=== PATIENT | male | born 1975 | race Caucasian/White ===

== ENCOUNTER 2017-11-14 14:13 | Inpatient (IN) ==
--- NOTE | 2017-11-14 14:41 | Emergency Department Note ---
Disposition Clinical Impression: Suicidal ideation Disposition: Admitted As Inpatient Condition: Fair Time of Disposition: 14:00 Psych HPI - General Chief Complaint: ED Psychiatric Symptoms Stated Complaint: SI Time Seen by Provider: 11/14/17 14:19 Source: patient, EMS Mode of arrival: ambulatory Limitations: no limitations Nursing Notes Reviewed: Yes Vital Signs Reviewed: Yes - History of Present Illness HPI Narrative: Patient is a 42-year-old male who presents to [facility] ED with a chief complaint of suicidal ideation. States he has been feeling this way since last month. He was recently in a rehabilitation program and they kicked him out. States he has been off his medications including methadone, Seroquel, alprazolam for the last 5 days. If he has been having diarrhea. Denies any nausea, vomiting, fever or chills. States he has not had any chest pain or difficulty breathing. He has had some abdominal cramping. No problems with urination or bowel movements. Past medical history significant for anxiety , depression, bipolar disorder. States he has also been hearing voices telling him to hurt himself. Pt complaint: suicidal ideation Onset (ago): week(s) History of similar episodes: Yes Improves with: none Worsens with: none Context: not taking psychiatric medications Alleged intoxication: No Associated Psychiatric Symptoms: suicidal ideation, auditory hallucinations Associated symptoms: Denies: headache, shortness of breath, nausea, vomiting Treatments prior to arrival: none Self harm or harm to others: admits thoughts of self harm - Related Data Home Medications Medication Instructions Recorded Confirmed Alprazolam [Xanax] 2 mg PO BID 11/13/17 11/13/17 Methadone 90 mg PO DAILY 11/13/17 11/13/17 Previous Rx's Medication Instructions Recorded Alprazolam [Alprazolam Xr] 1 mg PO DAILY 4 Days #4 tab.er.24h 11/13/17 Allergies Allergy/AdvReac Type Severity Reaction Status Date / Time chlorpromazine Allergy Difficulty Verified 11/14/17 13:24 [From Thorazine] Breathing haloperidol [From Haldol] Allergy Difficulty Verified 11/14/17 13:24 Breathing risperidone [From Risperdal] AdvReac Difficulty Verified 11/14/17 13:24 Breathing ziprasidone [From Geodon] AdvReac Difficulty Verified 11/14/17 13:24 Breathing All systems ED: reviewed and negative except as stated. Past Medical History - Past Medical History Attestation: Yes The following information was validated with the patient. Source: patient Medical history: Reports: no medical history Surgical history: Reports: non-contributory Psychiatric history: Reports: anxiety, depression, PTSD, prior suicide attempt, previous psychiatric hospitalization - Social History Smoking Status: Current every day smoker Smokeless Tobacco Status: No Alcohol use: Reports: none Drug use: Reports: none Physical Exam - General Limitations: no limitations General appearance: alert, in no apparent distress - Head Head exam: atraumatic, normocephalic, normal inspection - Eye Eye exam: Present: normal appearance, PERRL, EOMI - ENT ENT exam: normal exam, normal oropharynx, mucous membranes moist - Neck Neck exam: Present: normal inspection, full ROM, trachea midline - Chest Chest inspection: Present: normal inspection, symmetric chest wall rise - Respiratory Respiratory exam: Present: normal lung sounds bilaterally - Cardiovascular Cardiovascular exam: Present: regular rate, normal rhythm, normal heart sounds - Abdominal Exam Abdominal exam: Present: soft, Non-Tender. Absent: tenderness, distention, guarding, rebound, rigidity - Extremities Exam Extremities exam: Present: normal inspection, full ROM. Absent: tenderness, pedal edema - Back Exam Back exam: Present: normal inspection, full ROM. Absent: tenderness - Neurological Exam Neurological exam: Present: alert, oriented X3 - Psychiatric Psychiatric exam: Present: normal affect, normal mood - Skin Skin exam: Present: warm, dry, intact, normal color Course Course Narrative: Pt seen and examined. Patient has been off his medications for the last 5 days. Complaining of suicidal ideation. Also complained of a possible syncopal episode this morning. Get a chest x-ray and EKG as well as medical clearance labwork. Patient's vital signs are unremarkable at this time. He is not tachycardic or hypertensive. I do not feel that he is actively withdrawing from opiates at this time. - Reevaluation(s) Reevaluation #1: Labwork, imaging unremarkable. Patient was medically cleared. Patient was evaluated by psychiatry who has accepted patient to [facility] for evaluation. Time: 14:00 Vital Signs Temperature 97.8 F 11/14/17 14:15 Pulse Rate 94 11/14/17 14:15 Respiratory Rate 16 11/14/17 14:15 Blood Pressure 137/91 11/14/17 14:15 O2 Sat by Pulse Oximetry 97 11/14/17 14:15 Temperature 98.5 F 11/14/17 21:00 Pulse Rate 84 11/14/17 21:00 Respiratory Rate 22 11/14/17 21:00 Blood Pressure 132/96 11/14/17 21:00 O2 Sat by Pulse Oximetry 97 11/14/17 14:53 Oxygen Delivery Oxygen Delivery Room Air Psych - Medical Records Medical records reviewed: Yes I reviewed the patient's medical records. - Lab Data Lab results reviewed: Yes I reviewed the patient's lab results. Result diagrams: 11/14/17 14:54 11/14/17 14:54 Lab Results 11/14/17 11/14/17 11/14/17 Range/Units 14:52 14:52 14:54 WBC 6.6 (4.3-11.1) K/mcL RBC 4.75 (4.19-5.50) M/mcL Hgb 13.7 (12.9-16.9) g/dL Hct 39.7 (37.5-50.1) % MCV 83.6 (83.0-100.0) fL MCH 28.8 (28.0-33.3) pg MCHC 34.5 (31.6-35.5) g/dL RDW 13.6 (11.5-14.5) % Plt Count 158 (140-400) K/mcL MPV 9.7 (9.4-12.4) fL Immature Gran % 0.2 (0-4) % Seg Neutrophils % 57.1 % Lymphocytes % 31.6 % Monocytes % 6.8 % Eosinophils % 3.8 % Basophils % 0.5 % Neutrophils # 3.8 (1.6-8.9) K/mcL Lymphocytes # 2.1 (0.6-4.6) K/mcL Monocytes # 0.5 (0.0-1.3) K/mcL Eosinophils # 0.3 (0.0-0.6) K/mcL Basophils # 0.0 (0.0-0.2) K/mcL Sodium (136-145) mEq/L Potassium (3.5-5.1) mEq/L Chloride (98-107) mEq/L Carbon Dioxide (23-29) mEq/L BUN (6-20) mg/dL Creatinine (0.70-1.30) mg/dL Est GFR ( Amer) (> 60) Est GFR (Non-Af Amer) (> 60) BUN/Creatinine Ratio (6-26) Glucose (70-105) mg/dL Calculated Osmolality (280-300) Calcium (8.6-10.3) mg/dL Urine Color Yellow (Yellow) Urine Clarity Clear (Clear) Urine pH 5.5 (5.0-8.0) pH Units Ur Specific [place] > 1.030 H (1.010-1.025) Urine Protein Negative (Neg-Trace) mg/dL Urine Glucose (UA) Normal (Normal) mg/dL Urine Ketones Negative (Negative) mg/dL Urine Blood Negative (Negative) Urine Nitrite Negative (Negative) Urine Bilirubin Negative (Negative) Urine Urobilinogen Normal (Normal) mg/dL Ur Leukocyte Esterase Negative (Negative) Salicylates (15.0-30.0) mg/dL Urine Opiates Screen Negative (Zlfomd=292) ng/mL Acetaminophen (10-20) mcg/mL Ur Barbiturates Screen Negative (Szqxez=915) ng/mL Ur Phencyclidine Scrn Negative (Cutoff=25) ng/mL Ur Amphetamines Screen Positive H (Zjacwz=4027) ng/mL U Benzodiazepines Scrn Positive H (Fslzpj=107) ng/mL Urine Cocaine Screen Negative (Cutoff= 300) ng/mL U Marijuana (THC) Screen Negative (Cutoff = 50) ng/mL Ethyl Alcohol (Less than 10) mg/dL 11/14/17 Range/Units 14:54 WBC (4.3-11.1) K/mcL RBC (4.19-5.50) M/mcL Hgb (12.9-16.9) g/dL Hct (37.5-50.1) % MCV (83.0-100.0) fL MCH (28.0-33.3) pg MCHC (31.6-35.5) g/dL RDW (11.5-14.5) % Plt Count (140-400) K/mcL MPV (9.4-12.4) fL Immature Gran % (0-4) % Seg Neutrophils % % Lymphocytes % % Monocytes % % Eosinophils % % Basophils % % Neutrophils # (1.6-8.9) K/mcL Lymphocytes # (0.6-4.6) K/mcL Monocytes # (0.0-1.3) K/mcL Eosinophils # (0.0-0.6) K/mcL Basophils # (0.0-0.2) K/mcL Sodium 140 (136-145) mEq/L Potassium 3.5 (3.5-5.1) mEq/L Chloride 106 (98-107) mEq/L Carbon Dioxide 30 H (23-29) mEq/L BUN 13 (6-20) mg/dL Creatinine 0.83 (0.70-1.30) mg/dL Est GFR ( Amer) > 60 (> 60) Est GFR (Non-Af Amer) > 60 (> 60) BUN/Creatinine Ratio 16 (6-26) Glucose 130 H (70-105) mg/dL Calculated Osmolality 292 (280-300) Calcium 9.0 (8.6-10.3) mg/dL Urine Color (Yellow) Urine Clarity (Clear) Urine pH (5.0-8.0) pH Units Ur Specific [place] (1.010-1.025) Urine Protein (Neg-Trace) mg/dL Urine Glucose (UA) (Normal) mg/dL Urine Ketones (Negative) mg/dL Urine Blood (Negative) Urine Nitrite (Negative) Urine Bilirubin (Negative) Urine Urobilinogen (Normal) mg/dL Ur Leukocyte Esterase (Negative) Salicylates < 2.5 L (15.0-30.0) mg/dL Urine Opiates Screen (Xgszkj=273) ng/mL Acetaminophen < 10 L (10-20) mcg/mL Ur Barbiturates Screen (Paluzg=360) ng/mL Ur Phencyclidine Scrn (Cutoff=25) ng/mL Ur Amphetamines Screen (Czbahm=2822) ng/mL U Benzodiazepines Scrn (Runwwo=146) ng/mL Urine Cocaine Screen (Cutoff= 300) ng/mL U Marijuana (THC) Screen (Cutoff = 50) ng/mL Ethyl Alcohol < 10 (Less than 10) mg/dL - Radiology Data Radiology results reviewed: Yes I reviewed the patient's radiology results. - EKG Data EKG attestation: Yes I reviewed and interpreted this EKG. EKG results narrative: EKG done at 1456 shows normal sinus rhythm with a rate of [address] elevation or depression noted. Normal axis. No signs of prolonged intervals or shortened intervals, Brugada or ARVD. No prior EKG for comparison. Psychiatric Medical Clearance - Medical Clearance Checklist Does the patient have a NEW psychiatric condition?: No Any abnormalities indicating possible medical illness?: No Any history of medical issues?: No Medical History: No Social History Section defined Any abnormal vital signs prior to transfer?: No Current Vitals: Last Vital Signs Temp 98.5 F 11/14/17 21:00 Pulse 84 11/14/17 21:00 Resp 22 11/14/17 21:00 BP 132/96 11/14/17 21:00 Pulse Ox 97 11/14/17 14:53 Is the patient intoxicated or cognitively impaired?: No Psychiatric Lab Panel: Drug Levels and Toxicity 11/14/17 11/14/17 14:52 14:54 Urine Opiates Screen Negative Acetaminophen < 10 L Ur Barbiturates Screen Negative Ur Phencyclidine Scrn Negative Ur Amphetamines Screen Positive H U Benzodiazepines Scrn Positive H Urine Cocaine Screen Negative U Marijuana (THC) Screen Negative Ethyl Alcohol < 10 Any abnormalities on the physical exam?: No Any abnormal labs?: No Abnormal Labs: Abnormal lab results Carbon Dioxide 30 mEq/L (23-29) H 11/14/17 14:54 Glucose 130 mg/dL (70-105) H 11/14/17 14:54 Ur Specific [place] > 1.030 (1.010-1.025) H 11/14/17 14:52 Salicylates < 2.5 mg/dL (15.0-30.0) L 11/14/17 14:54 Acetaminophen < 10 mcg/mL (10-20) L 11/14/17 14:54 Ur Amphetamines Screen Positive ng/mL (Feodxq=8173) H 11/14/17 14:52 U Benzodiazepines Scrn Positive ng/mL (Hacbug=815) H 11/14/17 14:52 Does the patient require durable medical equiptment?: No Is the patient ambulatory?: Yes Is the patient a fall risk?: No Has the patient been medically cleared?: Yes Any acute medical condition require Tx prior to transfer?: No Statement of Medical Clearance: I have evaluated the patient, reviewed diagnostic information, and certify that the patient's medical condition is sufficiently stable that transfer to the psychiatric unit does not pose a significant risk of deterioration.
[2017-11-14 15:15] LABS: Basophils % 0.5 %; Eosinophils # 0.3 K/mcL (0.0-0.6); Eosinophils % 3.8 %; Hematocrit 39.7 % (37.5-50.1); Hemoglobin 13.7 g/dL (12.9-16.9); Immature Granulocytes % 0.2 % (0-4); Lymphocytes # 2.1 K/mcL (0.6-4.6); Lymphocytes % 31.6 %; Mean Corpuscular HGB Conc 34.5 g/dL (31.6-35.5); Mean Corpuscular Hemoglobin 28.8 pg (28.0-33.3); Mean Corpuscular Volume 83.6 fL (83.0-100.0); Mean Platelet Volume 9.7 fL (9.4-12.4); Monocytes # 0.5 K/mcL (0.0-1.3); Monocytes % 6.8 %; Neutrophils # 3.8 K/mcL (1.6-8.9); Platelet Count 158 K/mcL (140-400); Red Blood Count 4.75 M/mcL (4.19-5.50); Red Cell Distribution Width 13.6 % (11.5-14.5); Segmented Neutrophils % 57.1 %
[2017-11-14 15:26] LABS: Acetaminophen < 10 mcg/mL (10-20); BUN/Creatinine Ratio 16 (6-26); Blood Urea Nitrogen 13 mg/dL (6-20); Carbon Dioxide 30 mEq/L (23-29); Chloride 106 mEq/L (98-107); Ethanol < 10 mg/dL (Less than 10); Glucose 130 mg/dL (70-105); Osmolality,Calculated 292 (280-300); Potassium 3.5 mEq/L (3.5-5.1); Salicylate < 2.5 mg/dL (15.0-30.0); Sodium 140 mEq/L (136-145); eGFR For African Americans > 60 (> 60); eGFR For Non-African Americans > 60 (> 60)
--- NOTE | 2017-11-14 16:04 | Emergency Department Note ---
Disposition Clinical Impression: Suicidal ideation Disposition: Admitted As Inpatient Referrals: NONE,PCP [Primary Care Provider] - Ishmael Hager [Family Provider] - Forms: ED Satisfaction Letter Time of Disposition: 20:21 General Adult HPI - General Chief complaint: ED Psychiatric Symptoms Stated complaint: SI Time Seen by Provider: 11/14/17 14:19 Source: patient, EMS Mode of arrival: ambulatory Limitations: no limitations - History of Present Illness Pain Scale: 0 - Related Data Home Medications Medication Instructions Recorded Confirmed Alprazolam [Xanax] 2 mg PO BID 11/13/17 11/13/17 Methadone 90 mg PO DAILY 11/13/17 11/13/17 Previous Rx's Medication Instructions Recorded Alprazolam [Alprazolam Xr] 1 mg PO DAILY 4 Days #4 tab.er.24h 11/13/17 Allergies Allergy/AdvReac Type Severity Reaction Status Date / Time chlorpromazine Allergy Difficulty Verified 11/14/17 13:24 [From Thorazine] Breathing haloperidol [From Haldol] Allergy Difficulty Verified 11/14/17 13:24 Breathing risperidone [From Risperdal] AdvReac Difficulty Verified 11/14/17 13:24 Breathing ziprasidone [From Geodon] AdvReac Difficulty Verified 11/14/17 13:24 Breathing Past Medical History - Past Medical History Medical history: Reports: no medical history Surgical history: Reports: non-contributory Psychiatric history: Reports: anxiety, depression, PTSD, prior suicide attempt, previous psychiatric hospitalization - Social History Smoking Status: Current every day smoker Smokeless Tobacco Status: No Alcohol use: Reports: none Drug use: Reports: none Physical Exam - General Limitations: no limitations General appearance: alert, in no apparent distress Course Vital Signs Temperature 97.8 F 11/14/17 14:15 Pulse Rate 94 11/14/17 14:15 Respiratory Rate 16 11/14/17 14:15 Blood Pressure 137/91 11/14/17 14:15 O2 Sat by Pulse Oximetry 97 11/14/17 14:15 Temperature 97.8 F 11/14/17 14:15 Pulse Rate 94 11/14/17 14:53 Respiratory Rate 20 11/14/17 14:53 Blood Pressure 137/91 11/14/17 14:53 O2 Sat by Pulse Oximetry 97 11/14/17 14:53 Oxygen Delivery Oxygen Delivery Room Air Medical Decision Making - Lab Data Result diagrams: 11/14/17 14:54 11/14/17 14:54 Lab Results 11/14/17 11/14/17 11/14/17 Range/Units 14:52 14:52 14:54 WBC 6.6 (4.3-11.1) K/mcL RBC 4.75 (4.19-5.50) M/mcL Hgb 13.7 (12.9-16.9) g/dL Hct 39.7 (37.5-50.1) % MCV 83.6 (83.0-100.0) fL MCH 28.8 (28.0-33.3) pg MCHC 34.5 (31.6-35.5) g/dL RDW 13.6 (11.5-14.5) % Plt Count 158 (140-400) K/mcL MPV 9.7 (9.4-12.4) fL Immature Gran % 0.2 (0-4) % Seg Neutrophils % 57.1 % Lymphocytes % 31.6 % Monocytes % 6.8 % Eosinophils % 3.8 % Basophils % 0.5 % Neutrophils # 3.8 (1.6-8.9) K/mcL Lymphocytes # 2.1 (0.6-4.6) K/mcL Monocytes # 0.5 (0.0-1.3) K/mcL Eosinophils # 0.3 (0.0-0.6) K/mcL Basophils # 0.0 (0.0-0.2) K/mcL Sodium (136-145) mEq/L Potassium (3.5-5.1) mEq/L Chloride (98-107) mEq/L Carbon Dioxide (23-29) mEq/L BUN (6-20) mg/dL Creatinine (0.70-1.30) mg/dL Est GFR ( Amer) (> 60) Est GFR (Non-Af Amer) (> 60) BUN/Creatinine Ratio (6-26) Glucose (70-105) mg/dL Calculated Osmolality (280-300) Calcium (8.6-10.3) mg/dL Urine Color Yellow (Yellow) Urine Clarity Clear (Clear) Urine pH 5.5 (5.0-8.0) pH Units Ur Specific [place] > 1.030 H (1.010-1.025) Urine Protein Negative (Neg-Trace) mg/dL Urine Glucose (UA) Normal (Normal) mg/dL Urine Ketones Negative (Negative) mg/dL Urine Blood Negative (Negative) Urine Nitrite Negative (Negative) Urine Bilirubin Negative (Negative) Urine Urobilinogen Normal (Normal) mg/dL Ur Leukocyte Esterase Negative (Negative) Salicylates (15.0-30.0) mg/dL Urine Opiates Screen Negative (Soqoej=717) ng/mL Acetaminophen (10-20) mcg/mL Ur Barbiturates Screen Negative (Uvwajv=797) ng/mL Ur Phencyclidine Scrn Negative (Cutoff=25) ng/mL Ur Amphetamines Screen Positive H (Mxragx=2253) ng/mL U Benzodiazepines Scrn Positive H (Qaqrbl=868) ng/mL Urine Cocaine Screen Negative (Cutoff= 300) ng/mL U Marijuana (THC) Screen Negative (Cutoff = 50) ng/mL Ethyl Alcohol (Less than 10) mg/dL 11/14/17 Range/Units 14:54 WBC (4.3-11.1) K/mcL RBC (4.19-5.50) M/mcL Hgb (12.9-16.9) g/dL Hct (37.5-50.1) % MCV (83.0-100.0) fL MCH (28.0-33.3) pg MCHC (31.6-35.5) g/dL RDW (11.5-14.5) % Plt Count (140-400) K/mcL MPV (9.4-12.4) fL Immature Gran % (0-4) % Seg Neutrophils % % Lymphocytes % % Monocytes % % Eosinophils % % Basophils % % Neutrophils # (1.6-8.9) K/mcL Lymphocytes # (0.6-4.6) K/mcL Monocytes # (0.0-1.3) K/mcL Eosinophils # (0.0-0.6) K/mcL Basophils # (0.0-0.2) K/mcL Sodium 140 (136-145) mEq/L Potassium 3.5 (3.5-5.1) mEq/L Chloride 106 (98-107) mEq/L Carbon Dioxide 30 H (23-29) mEq/L BUN 13 (6-20) mg/dL Creatinine 0.83 (0.70-1.30) mg/dL Est GFR ( Amer) > 60 (> 60) Est GFR (Non-Af Amer) > 60 (> 60) BUN/Creatinine Ratio 16 (6-26) Glucose 130 H (70-105) mg/dL Calculated Osmolality 292 (280-300) Calcium 9.0 (8.6-10.3) mg/dL Urine Color (Yellow) Urine Clarity (Clear) Urine pH (5.0-8.0) pH Units Ur Specific [place] (1.010-1.025) Urine Protein (Neg-Trace) mg/dL Urine Glucose (UA) (Normal) mg/dL Urine Ketones (Negative) mg/dL Urine Blood (Negative) Urine Nitrite (Negative) Urine Bilirubin (Negative) Urine Urobilinogen (Normal) mg/dL Ur Leukocyte Esterase (Negative) Salicylates < 2.5 L (15.0-30.0) mg/dL Urine Opiates Screen (Jyxhhq=572) ng/mL Acetaminophen < 10 L (10-20) mcg/mL Ur Barbiturates Screen (Qqzmls=996) ng/mL Ur Phencyclidine Scrn (Cutoff=25) ng/mL Ur Amphetamines Screen (Wrdjux=6379) ng/mL U Benzodiazepines Scrn (Kayate=459) ng/mL Urine Cocaine Screen (Cutoff= 300) ng/mL U Marijuana (THC) Screen (Cutoff = 50) ng/mL Ethyl Alcohol < 10 (Less than 10) mg/dL Attestation Statement - Attestation Attestation: I examined this patient and my medical decision-making was reviewed with the Resident Physician. I agree with the documented findings, disposition and treatment plan as described except to the extent set forth below. Patient to the ED with suicidal thoughts. Patient went to urgent care threatening to jump off a bridge because he is out of his benzo and methadone. Patient has had multiple visits for the same. Patient awake and alert in no distress on my evaluation. Expressing suicidal thoughts. Plan. Medical clearance and evaluation by [facility]. Patient medically cleared at this time and awaiting evaluation Evaluated by [facility] who feels he is appropriate for admission. Requesting haloperidol and lorazepam
[2017-11-14 16:37] LABS: Bilirubin,Urine Negative (Negative); Blood,Urine Negative (Negative); Clarity,Urine Clear (Clear); Color,Urine Yellow (Yellow); Glucose,Urine (UA) Normal (Normal); Ketones,Urine Negative (Negative); Leukocyte Esterase,Urine Negative (Negative); Nitrite,Urine Negative (Negative); PH,Urine 5.5 pH Units (5.0-8.0); Protein,Urine Negative (Neg-Trace); Specific Gravity,Urine > 1.030 (1.010-1.025); Urobilinogen,Urine Normal (Normal)
[2017-11-14 16:46] LABS: Amphetamine Screen,Urine Positive ng/mL (Cutoff=1000); Barbiturate Screen,Urine Negative ng/mL (Cutoff=200); Benzodiazepines Screen,Urine Positive ng/mL (Cutoff=200); Cannabinoid Screen,Urine Negative ng/mL (Cutoff = 50); Cocaine Screen,Urine Negative ng/mL (Cutoff= 300); Opiate Screen,Urine Negative ng/mL (Cutoff=300); Phencyclidine Screen,Urine Negative ng/mL (Cutoff=25)
[2017-11-14] MEDS ORDERED: *HR* LORazepam 2 MG/ML VIAL IM ONE (20:19)
[2017-11-14] MEDS ORDERED: Haloperidol Lactate 5 MG/ML VIAL IM ONE (20:19)
[2017-11-14] MEDS ORDERED: Mag Hydrox/Al Hydrox/Simeth 30 ML UDC PO PRN (20:43)
[2017-11-14] MEDS ORDERED: MOM Conc 10 ML UD.LIQ PO PRN (20:43)
[2017-11-14] MEDS ORDERED: Acetaminophen 325 MG TABLET PO PRN (20:43)
[2017-11-14] MEDS ORDERED: traZODone 50 MG TABLET PO PRN (20:43)
[2017-11-14] MEDS ORDERED: *HR* LORazepam 1 MG TABLET PO PRN (20:43)
[2017-11-14] MEDS ORDERED: *HR* LORazepam 2 MG/ML VIAL IM PRN (20:43)
[2017-11-14] MEDS ORDERED: hydrOXYzine pamoate 25 MG CAPSULE PO PRN (20:43)
[2017-11-14] MEDS ORDERED: Ondansetron ODT 4 MG TAB.RAPDIS SL PRN (20:46)
[2017-11-14] MEDS ORDERED: *HR* Promethazine 25 MG/ML VIAL IM ONE (21:17)
--- NOTE | 2017-11-15 16:03 | Psychiatry History & Physical ---
Date of Encounter: 11/15/17 Time of Encounter: 15:30 History of Present Illness Patient Stated Chief Complaint: I need my methadone Medicare Admission Attestation: For traditional Medicare patients the provided hospital inpatient services are reasonable and necessary and in the case of services not specified as inpatient -only under 42 CFR 419.22 (n), that they are appropriately provided as inpatient services in accordance 42 CFR 412.3. For Critical Access Hospital the patient may reasonably be expected to be discharged or transferred to a hospital within 96 hours after admission to the Critical Access Hospital. Admitted From: Emergency Dept Plans for Post Hospital Care: Home History of Present Illness: Patient to the ED with suicidal thoughts. Patient went to urgent care threatening to jump off a bridge because he is out of his benzo and methadone. Patient has had multiple visits for the same. Patient awake and alert in no distress on my evaluation. Expressing suicidal thoughts. Plan. Medical clearance and evaluation by 1A. Patient medically cleared at this time and awaiting evaluation Evaluated by 1A who feels he is appropriate for admission. Requesting haloperidol and lorazepam Pt is a 42 yo ,, male, marriedx1, with 2 children, who presents for substance induced mood disorder, opioid use D/O and benzodiazepine use D/O. Pt noted "I just need my meds, I said all that stuff to get my meds and you wont give them to me." Pt was offer a multiple non-narcotic medications and he refused all demanding methadone, opioids, or benzodiazepines.....pt noted he would settle for tramadol. Pt refused to participate in treatment team or take psychiatric medications due to not being prescirbed what he wanted. Pt noted "I feel safe and comfortable on the unit." Pt denied any side effects to current medications. Pt requested D/C for tomorrow. Pt noted that he is doing alright today. Pt noted he slept really good last night they gave me lorazepam. Pt noted his appetite is good. Pt rated his depression a 0, on a scale of zero to ten with ten being the worst and zero being none. Pt rate his anxiety a 0, on the same scale. Pt denied any auditory or visual hallucinations. Pt denied any current thoughts to harm himself or anyone else. Pt refused all antidepressants, anti-anzylitics and pain medications unless it was a narcotic. Pt denied HEP C, HIV, TBIs. Pt noted a hx of seizures (years ago). No TD noted, AIMS=0 Assessment/Plan 1.Interval hx 2.Continue current medications 3.Review current labs 4.Pt had an opportunity to ask questions and discuss current treatment plan. 5.Supportive therapy was provided 6.Pt encouraged to consider group or individual therapy 7.Pt was in agreement with treatment plan. 8.Pt was educated on the risks benefits and side effects of current medications. Past Med Surg Social Fam HX - Past Medical History Medical history: no medical history - Past Psychiatric History Psychiatric history: Reports: depression, previous psychiatric hospitalization, other (polysubstance use D/O) Family psychiatric history: Yes Family History of Suicide: Unknown - Past Surgical History Surgical History: non-contributory - Social History Smoking Status: Former smoker Smokeless Tobacco Status: No Alcohol use: none Drug use: none Medications & Allergies ALPRAZolam [Xanax 1 MG Tablet] 1 mg PO BID 11/15/17 [History] 3 Allergy/AdvReac Type Severity Reaction Status Date / Time chlorpromazine Allergy Difficulty Verified 11/15/17 10:05 [From Thorazine] Breathing haloperidol [From Haldol] Allergy Difficulty Verified 11/15/17 10:05 Breathing risperidone [From Risperdal] AdvReac Difficulty Verified 11/15/17 10:05 Breathing ziprasidone [From Geodon] AdvReac Difficulty Verified 11/15/17 10:05 Breathing Review of Systems Constitutional: Denies: fever, chills, weakness, weight change Eyes: Denies: eye pain, vision change Ears, Nose, Throat: Denies: ear pain, throat pain, dental pain, hearing loss, congestion Cardiovascular: Denies: chest pain, palpitations, dyspnea on exertion Respiratory: Denies: cough, dyspnea, wheezes Gastrointestinal: Denies: abdominal pain, nausea, vomiting, diarrhea, constipation Genitourinary male: Denies: urgency, dysuria, frequency, genital lesions Musculoskeletal: Denies: joint swelling, joint pain Integumentary: Denies: rash, lesions, pruritus Neurological: Denies: headache, weakness, numbness, memory loss Psychiatric: Reports: anxiety, other (polysubstance use D/O) Endocrine: Denies: fatigue, heat or cold intolerance Hematologic/Lymphatic: Denies: easy bruising, lymphadenopathy Allergic/Immunologic: Denies: urticaria, itchy eyes Exam - HEENT Head exam IM: Present: atraumatic Eye exam IM: Present: EOMI, normal appearance, PERRL ENT exam IM: Present: normal exam - Neurological Neurological exam: Present: CN II-XII intact - Respiratory Respiratory exam IM: Present: CTAB - GI/Abdominal GI/Abdominal exam IM: Present: normal bowel sounds, soft. Absent: tenderness - Extremities Extremities exam IM: Present: full ROM - Skin Skin exam IM: Present: dry, warm - Constitutional Vitals: Temp Pulse Resp BP Pulse Ox 97.6 F 101 20 139/98 97 11/15/17 09:00 11/15/17 09:00 11/15/17 09:00 11/15/17 09:00 11/14/17 14:53 General appearance: age & developmentally appropriate, well-groomed, well- nourished - Musculoskeletal Gait: normal Station: relaxed Strength & Tone: normal for patient - Psychiatric Patient Orientation: Yes Person, Yes Time, Yes Place Level of alertness: Alert Behavior: calm, cooperative, other (secondary gain) Psychomotor activity: Normal Eye Contact: Maintains Eye Contact Mood Description: Euthymic/stable Affect description: congruent with mood Speech Volume: Normal Speech pattern: normal rate, normal rhythm, normal tone, fluent Language & Vocabulary: consistent with education Thought Process: Intact, Linear (secondary gain noted), Goal Oriented Thought Content: Yes Intact, No Suicidal ideation, No Homicidal ideation, No Overt delusions Perceptual Disturbances: No Auditory hallucinations, No Visual hallucinations Attention Span Ability: Capable of Focused Attention Memory Description: Grossly Intact Patient Reliability: Questionable Historian Fund of knowledge: Yes abstraction ability, Yes average, Yes aware of current events Intelligence Estimate: Average Judgment: Limited Insight: Partial Results - Labs Labs: Laboratory Last Values WBC 6.6 K/mcL (4.3-11.1) 11/14/17 14:54 RBC 4.75 M/mcL (4.19-5.50) 11/14/17 14:54 Hgb 13.7 g/dL (12.9-16.9) 11/14/17 14:54 Hct 39.7 % (37.5-50.1) 11/14/17 14:54 MCV 83.6 fL (83.0-100.0) 11/14/17 14:54 MCH 28.8 pg (28.0-33.3) 11/14/17 14:54 MCHC 34.5 g/dL (31.6-35.5) 11/14/17 14:54 RDW 13.6 % (11.5-14.5) 11/14/17 14:54 Plt Count 158 K/mcL (140-400) 11/14/17 14:54 MPV 9.7 fL (9.4-12.4) 11/14/17 14:54 Immature Gran % 0.2 % (0-4) 11/14/17 14:54 Seg Neutrophils % 57.1 % 11/14/17 14:54 Lymphocytes % 31.6 % 11/14/17 14:54 Monocytes % 6.8 % 11/14/17 14:54 Eosinophils % 3.8 % 11/14/17 14:54 Basophils % 0.5 % 11/14/17 14:54 Neutrophils # 3.8 K/mcL (1.6-8.9) 11/14/17 14:54 Lymphocytes # 2.1 K/mcL (0.6-4.6) 11/14/17 14:54 Monocytes # 0.5 K/mcL (0.0-1.3) 11/14/17 14:54 Eosinophils # 0.3 K/mcL (0.0-0.6) 11/14/17 14:54 Basophils # 0.0 K/mcL (0.0-0.2) 11/14/17 14:54 Sodium 140 mEq/L (136-145) 11/14/17 14:54 Potassium 3.5 mEq/L (3.5-5.1) 11/14/17 14:54 Chloride 106 mEq/L (98-107) 11/14/17 14:54 Carbon Dioxide 30 mEq/L (23-29) H 11/14/17 14:54 BUN 13 mg/dL (6-20) 11/14/17 14:54 Creatinine 0.83 mg/dL (0.70-1.30) 11/14/17 14:54 Est GFR ( Amer) > 60 (> 60) 11/14/17 14:54 Est GFR (Non-Af Amer) > 60 (> 60) 11/14/17 14:54 BUN/Creatinine Ratio 16 (6-26) 11/14/17 14:54 Glucose 130 mg/dL (70-105) H 11/14/17 14:54 Calculated Osmolality 292 (280-300) 11/14/17 14:54 Calcium 9.0 mg/dL (8.6-10.3) 11/14/17 14:54 Urine Color Yellow (Yellow) 11/14/17 14:52 Urine Clarity Clear (Clear) 11/14/17 14:52 Urine pH 5.5 pH Units (5.0-8.0) 11/14/17 14:52 Ur Specific [place] > 1.030 (1.010-1.025) H 11/14/17 14:52 Urine Protein Negative mg/dL (Neg-Trace) 11/14/17 14:52 Urine Glucose (UA) Normal mg/dL (Normal) 11/14/17 14:52 Urine Ketones Negative mg/dL (Negative) 11/14/17 14:52 Urine Blood Negative (Negative) 11/14/17 14:52 Urine Nitrite Negative (Negative) 11/14/17 14:52 Urine Bilirubin Negative (Negative) 11/14/17 14:52 Urine Urobilinogen Normal mg/dL (Normal) 11/14/17 14:52 Ur Leukocyte Esterase Negative (Negative) 11/14/17 14:52 Salicylates < 2.5 mg/dL (15.0-30.0) L 11/14/17 14:54 Urine Opiates Screen Negative ng/mL (Siquzm=854) 11/14/17 14:52 Acetaminophen < 10 mcg/mL (10-20) L 11/14/17 14:54 Ur Barbiturates Screen Negative ng/mL (Uollwa=538) 11/14/17 14:52 Ur Phencyclidine Scrn Negative ng/mL (Cutoff=25) 11/14/17 14:52 Ur Amphetamines Screen Positive ng/mL (Nknipp=4477) H 11/14/17 14:52 U Benzodiazepines Scrn Positive ng/mL (Yhlojh=286) H 11/14/17 14:52 Urine Cocaine Screen Negative ng/mL (Cutoff= 300) 11/14/17 14:52 U Marijuana (THC) Screen Negative ng/mL (Cutoff = 50) 11/14/17 14:52 Ethyl Alcohol < 10 mg/dL (Less than 10) 11/14/17 14:54 Assessment and Plan (1) Substance induced mood disorder Current visit: Yes Status: Acute Plan: Admit inpatient for safety and stabilization, Close observation, Suicide Precautions per unit protocol, Encourage participation in unit milieu, Group Therapy, Monitor sleep, Monitor appetite Risks, benefits, side effects, alternatives discussed w/pt: Yes Patient agreeable to treatment: Yes Plans for Post Hospital Care: Home (2) Opioid use disorder Current visit: Yes Status: Acute Plan: Admit inpatient for safety and stabilization, Close observation, Suicide Precautions per unit protocol, Encourage participation in unit milieu, Group Therapy, Monitor sleep, Monitor appetite Risks, benefits, side effects, alternatives discussed w/pt: Yes Patient agreeable to treatment: Yes Plans for Post Hospital Care: Home (3) Moderate benzodiazepine use disorder Current visit: Yes Status: Acute Plan: Admit inpatient for safety and stabilization, Close observation, Suicide Precautions per unit protocol, Encourage participation in unit milieu, Group Therapy, Monitor sleep, Monitor appetite Risks, benefits, side effects, alternatives discussed w/pt: Yes Patient agreeable to treatment: Yes Plans for Post Hospital Care: Home (4) Acute anxiety Current visit: No Status: Acute Plan: Admit inpatient for safety and stabilization, Close observation, Suicide Precautions per unit protocol, Encourage participation in unit milieu, Group Therapy, Monitor sleep, Monitor appetite Risks, benefits, side effects, alternatives discussed w/pt: Yes Patient agreeable to treatment: Yes Plans for Post Hospital Care: Home (5) Malingerer Current visit: No Status: Acute Plan: Admit inpatient for safety and stabilization, Close observation, Suicide Precautions per unit protocol, Encourage participation in unit milieu, Group Therapy, Monitor sleep, Monitor appetite Risks, benefits, side effects, alternatives discussed w/pt: Yes Patient agreeable to treatment: Yes Plans for Post Hospital Care: Home
--- NOTE | 2017-11-15 17:53 | Electrocardiograph Report ---
[place] [id number] Test Date: 2017-11-14 Pat Name: Clarke Centervillecortney Department: 103 Room: 1A42 Gender: M Casing Tier: : 1975 Requested By: Annette Piña Order Number: [id number] Reading MD: Clarke Herrera Measurements Intervals [place] Rate: 80 P: 52 MI: 160 QRS: 38 QRSD: 92 T: 50 QT: 361 QTc: 397 Interpretive Statements SINUS RHYTHM POSSIBLE LEFT ATRIAL ENLARGEMENT Electronically Signed On 11-15-2017 17:51:20 EDT by Clarke Herrera
--- NOTE | 2017-11-16 08:37 | Discharge Summary ---
Date of Encounter: 11/16/17 Time of Encounter: 08:30 Diagnosis - Discharge Diagnosis (1) Substance induced mood disorder Status: Acute (2) Opioid use disorder Status: Acute (3) Moderate benzodiazepine use disorder Status: Acute (4) Acute anxiety Status: Acute (5) Malingerer Status: Acute Medications - Discharge Medications Prescriptions: hydrOXYzine pamoate [HydrOXYzine Pamoate] 25 mg PO TID PRN #120 capsule PRN Reason: Anxiety hydrOXYzine pamoate [HydrOXYzine Pamoate] 25 mg PO TID PRN #120 capsule [Rx] 3 Allergy/AdvReac Type Severity Reaction Status Date / Time chlorpromazine Allergy Difficulty Verified 11/15/17 10:05 [From Thorazine] Breathing haloperidol [From Haldol] Allergy Difficulty Verified 11/15/17 10:05 Breathing risperidone [From Risperdal] AdvReac Difficulty Verified 11/15/17 10:05 Breathing ziprasidone [From Geodon] AdvReac Difficulty Verified 11/15/17 10:05 Breathing Provider Date of admission: 11/14/17 20:31 Primary care physician: PCP NONE Discharging clinician: Braeden Pichardo Psychiatry Exam - Constitutional Vitals: Temp Pulse Resp BP Pulse Ox 97.6 F 101 20 139/98 97 11/15/17 09:00 11/15/17 09:00 11/15/17 09:00 11/15/17 09:00 11/14/17 14:53 General appearance: age & developmentally appropriate, well-groomed, well- nourished - Musculoskeletal Gait: normal Station: relaxed Strength & Tone: normal for patient - Psychiatric Patient Orientation: Yes Person, Yes Time, Yes Place Level of alertness: Alert Behavior: calm, cooperative Psychomotor activity: Normal Eye Contact: Maintains Eye Contact Mood Description: Euthymic/stable Affect description: congruent with mood, full range Speech Volume: Normal Speech pattern: normal rate, normal rhythm, normal tone, fluent, spontaneous Language & Vocabulary: consistent with education Thought Process: Linear, Goal Oriented Thought Content: No Suicidal ideation, No Homicidal ideation, No Overt delusions Perceptual Disturbances: No Auditory hallucinations, No Visual hallucinations Attention Span Ability: Capable of Focused Attention Memory Description: Grossly Intact Patient Reliability: Reliable Historian Fund of knowledge: Yes abstraction ability, Yes aware of current events Intelligence Estimate: Average Judgment: Limited Insight: Partial Hospital Course Hospital course: Patient to the ED with suicidal thoughts. Patient went to urgent care threatening to jump off a bridge because he is out of his benzo and methadone. Patient has had multiple visits for the same. Patient awake and alert in no distress on my evaluation. Expressing suicidal thoughts. Plan. Medical clearance and evaluation by 1A. Patient medically cleared at this time and awaiting evaluation Evaluated by 1A who feels he is appropriate for admission. Requesting haloperidol and lorazepam Pt is a 42 yo ,, male, marriedx1, with 2 children, who presents for substance induced mood disorder, opioid use D/O and benzodiazepine use D/O. Pt noted "I just need my meds, I said all that stuff to get my meds and you wont give them to me." Pt was offer a multiple non-narcotic medications and he refused all demanding methadone, opioids, or benzodiazepines.....pt noted again he would settle for tramadol. Pt refused to participate in treatment team or take psychiatric medications due to not being prescirbed what he wanted. Pt noted "I feel safe and comfortable on the unit." Pt denied any side effects to current medications. Pt noted he felt safe and comfortable for D/C today. Pt noted that he is doing alright today. Pt noted he slept good 8 hours. Pt noted his appetite is good. Pt rated his depression a 0, on a scale of zero to ten with ten being the worst and zero being none. Pt rate his anxiety a 0, on the same scale. Pt denied any auditory or visual hallucinations. Pt denied any current thoughts to harm himself or anyone else. Pt refused all antidepressants, anti-anxiety and pain medications unless it was a narcotic. Patient noted a significant reeducation in his depression and anxiety during his stay on [facility]. Pt noted that he slowly improved to the point that he was comfortable and safe to D/C home. Pt noted he felt his medications were working well and denied any current side effects. Treatment team encouraged Pt to stay out of bed and try to find activities to do, verbalized understanding. pt reported that he felt safe on the unit and comfortable for discharge. Pt Denied suicidal/homicidal ideations, denied any problems or concerns with medications or side effects. PT voiced progression towards treatment goals and was offered a copy of updated treatment plan completed during visit today. Denied any immediate needs or concerns. Pt throughout his stay on inpt psych pt felt comfortable being discharged. Pt was advised to take all medications as prescribed, follow up with all scheduled appointments and abstain from any alcohol or illicit substances. Pt was in agreement. Pt felt safe and comfortable to be discharged to follow up with outpt/inpt mental health. Pt was very optimistic about his D/C. Pt stated that he was doing "good," today. Pt stated that he slept "about 8 hours," last night. Pt stated that his appetite is "good." Pt stated that he rates his depression a "0," on a scale of 0-10 with 10 being the worst and 0 being none. Pt stated that he rates his anxiety an "0/10," on the same scale. Pt denies any auditory or visual hallucinations. Pt denied any thoughts to harm himself or anyone else. Pt felt safe and comfortable for D/C. Pt denied HEP C, HIV, TBIs. Pt noted a hx of seizures (years ago). No TD noted, AIMS=0 Assessment/Plan 1.Interval hx 2.Continue current medications 3.Review current labs 4.Pt had an opportunity to ask questions and discuss current treatment plan. 5.Supportive therapy was provided 6.Pt encouraged to consider group or individual therapy 7.Pt was in agreement with treatment plan. 8.Pt was educated on the risks benefits and side effects of current medications. 9. Take all medicaitons as prescribed. 10. abstain from any alcohol or illict substances. 11. follow up with all scheduled appointments Time spent discussing smoking cessation with patient: 3 to 10 minutes Does patient wish to continue nicotine replacement upon disc: No - Time Spent with Patient Total time spent providing and/or coordinating discharge services: Greater than 30 minutes Assessment and Plan - Patient/Caregiver Discharge Instructions Activity: resume usual activities as tolerated Diet: regular diet - Follow up Plan Follow up with: [facility] [Other] - 11/19/17 5:00 am (To start services for Methadone treatment, arrive at least 60 minutes prior to the office opening and get in line. Clients are seen on a first come first serve basis, and getting in line at least one hour prior to opening time will allow you to get started the same day. Once inside, go to window 4 and let them know you are a new patient. You will complete some paperwork, be seen by the nurse, and then by the doctor. This first visit will take 2-3 hours after you get to window 4. Bring a non- photo ID and your insurance card with you. The office opens at 6:00am Mondays, and Fridays, and 5:30am Tuesdays and Wednesdays. Be sure to arrive at least one hour before the office opens so you can start treatment the same day.) [facility] [Outside] (To start services you may walk in Sunday thru Sunday from 8am to 3:30pm at [address] [place] [address]. You will be seen by an ultrasound specialist, you case will be opened, and you will be referred for ongoing services which may include case management, counseling and medication management services.) Overall status at discharge: Stable Disposition: Home, Self-Care Quality - Multiple Antipsychotics Patient discharged on 2 or more antipsychotic medications: No - Justification Documentation of: Other justification (not on antipsychotics) Procedures - Procedures Procedures: Medication Management, Crisis Stabilization, Supportive Therapy, Group Therapy, Psychoeducational Therapy
[2017-11-16 11:22] VITALS: BP 139/101
== END 2017-11-16 11:00 | disposition home or self-care (01) | DRG 773 ==
LOC: EMEROO 14:13 → 1ANU 20:31
PROVIDERS: ADMIT General Practice; ATTEND General Practice

== ENCOUNTER 2017-11-24 17:51 | Observation (INO) ==
[2017-11-24] MEDS ORDERED: Acetaminophen 650 MG RECTAL SUPP RC ONE (18:04)
[2017-11-24 18:29] LABS: Basophils % 0.4 %; Eosinophils # 0.1 K/mcL (0.0-0.6); Eosinophils % 0.9 %; Hematocrit 38.8 % (37.5-50.1); Immature Granulocytes % 0.2 % (0-4); Lymphocytes # 1.1 K/mcL (0.6-4.6); Lymphocytes % 12.1 %; Mean Corpuscular HGB Conc 33.5 g/dL (31.6-35.5); Mean Corpuscular Hemoglobin 28.1 pg (28.0-33.3); Mean Platelet Volume 9.7 fL (9.4-12.4); Monocytes # 0.6 K/mcL (0.0-1.3); Monocytes % 6.5 %; Neutrophils # 7.5 K/mcL (1.6-8.9); Platelet Count 227 K/mcL (140-400); Red Blood Count 4.62 M/mcL (4.19-5.50); Red Cell Distribution Width 14.6 % (11.5-14.5); Segmented Neutrophils % 79.9 %
[2017-11-24 18:39] LABS: Bilirubin,Urine Negative (Negative); Blood,Urine Small (Negative); Clarity,Urine Cloudy (Clear); Color,Urine Yellow (Yellow); Glucose,Urine (UA) 250 mg/dL (Normal); Ketones,Urine Negative (Negative); Leukocyte Esterase,Urine Negative (Negative); Nitrite,Urine Negative (Negative); PH,Urine 5.5 pH Units (5.0-8.0); Protein,Urine 30 mg/dL (Neg-Trace); Specific Gravity,Urine 1.029 (1.010-1.025); Urobilinogen,Urine Normal (Normal)
[2017-11-24 18:39] LABS: INR 1.1; Prothrombin Time 12.6 Seconds (9.4-12.1)
[2017-11-24 18:41] LABS: Bacteria,Urine None Seen per hpf (None-Few); Squamous Epithelial Cell,Urine Many per lpf (None-Few)
[2017-11-24 18:42] LABS: Activated Partial Thrombo Time 25.4 Seconds (26.0-36.0)
[2017-11-24 18:53] LABS: Alanine Aminotransferase 25 Units/L (7-52); Albumin 4.2 g/dL (3.5-5.7); Albumin/Globulin Ratio 1.5 (1.1-2.2); Alkaline Phosphatase 67 Units/L (34-104); Aspartate Amino Transferase 19 Units/L (13-39); BUN/Creatinine Ratio 13 (6-26); Bilirubin,Direct 0.2 mg/dL (0.0-0.2); Bilirubin,Indirect 0.3 mg/dL (0.0-1.2); Bilirubin,Total 0.5 mg/dL (0.3-1.0); Blood Urea Nitrogen 18 mg/dL (6-20); Calcium 9.5 mg/dL (8.6-10.3); Carbon Dioxide 24 mEq/L (23-29); Chloride 110 mEq/L (98-107); Ethanol < 10 mg/dL (Less than 10); Globulin 2.8 g/dL (2.4-3.5); Glucose 256 mg/dL (70-105); Osmolality,Calculated 305 (280-300); Potassium 3.8 mEq/L (3.5-5.1); Sodium 142 mEq/L (136-145); Troponin I < 0.03 ng/mL (< 0.04); eGFR For African Americans > 60 (> 60); eGFR For Non-African Americans 57 (> 60)
[2017-11-24 18:59] LABS: WBC,Urine 0-3 per hpf (0-3)
[2017-11-24 19:00] LABS: Amphetamine Screen,Urine Positive ng/mL (Cutoff=1000); Barbiturate Screen,Urine Negative ng/mL (Cutoff=200); Benzodiazepines Screen,Urine Negative ng/mL (Cutoff=200); Cannabinoid Screen,Urine Negative ng/mL (Cutoff = 50); Cocaine Screen,Urine Negative ng/mL (Cutoff= 300); Opiate Screen,Urine Negative ng/mL (Cutoff=300); Phencyclidine Screen,Urine Negative ng/mL (Cutoff=25)
[2017-11-24 19:02] LABS: Hyaline Casts,Urine Few per lpf (None-Few); Sperm,Urine Present
--- NOTE | 2017-11-24 19:40 | Emergency Department Note ---
Disposition Clinical Impression: Confusion Fever Qualifiers: Fever type: unspecified Qualified Code(s): R50.9 - Fever, unspecified Disposition: Admitted As Inpatient Condition: Undetermined General Adult HPI - General Chief complaint: ED Fall Stated complaint: Fall Time Seen by Provider: 11/24/17 17:56 Source: EMS Limitations: altered mental status Nursing Notes Reviewed: Yes Vital Signs Reviewed: Yes - History of Present Illness Pain Scale: 0 - Related Data Previous Rx's Medication Instructions Recorded hydrOXYzine pamoate [HydrOXYzine 25 mg PO TID PRN #120 capsule 11/16/17 Pamoate] Buspirone HCl [Buspar] 15 mg PO BID #60 tablet 11/23/17 Ibuprofen [Motrin] 800 mg PO Q6-8H PRN #30 tablet 11/23/17 Allergies Allergy/AdvReac Type Severity Reaction Status Date / Time chlorpromazine Allergy Difficulty Verified 11/23/17 09:20 [From Thorazine] Breathing haloperidol [From Haldol] Allergy Difficulty Verified 11/23/17 09:20 Breathing hydroxyzine [From Vistaril] Allergy Rash Verified 11/23/17 09:24 risperidone [From Risperdal] AdvReac Difficulty Verified 11/23/17 09:20 Breathing ziprasidone [From Geodon] AdvReac Difficulty Verified 11/23/17 09:20 Breathing Past Medical History - Past Medical History Attestation: Yes The following information was validated with the patient. Medical history: Reports: other Surgical history: Reports: non-contributory Psychiatric history: Reports: anxiety, depression, previous psychiatric hospitalization, other - Social History Smoking Status: Current every day smoker Smokeless Tobacco Status: No Alcohol use: Reports: none Drug use: Reports: prescription drug abuse Physical Exam - General Limitations: altered mental status General appearance: alert, lethargic Course Course Narrative: Patient transferred to my care by shift team was found by EMS after phone call was made due to him being found stumbling. [place] station in which he shortly afterwards found laying on the ground outside. On arrival patient was spontaneous he opening his eyes he is very warm and diaphoretic he is following commands however he was not speaking. On my exam the patient is able to speak. He denies any pain. Consultation was made with the Poison Control Center. Patient's EKG was reveiw, additional labs were ordered. CIWA protocol was initiated and patient was given ativan. Vital Signs Temperature 101 F H 11/24/17 17:54 Pulse Rate 131 11/24/17 17:54 Respiratory Rate 18 11/24/17 17:54 Blood Pressure 172/117 11/24/17 17:54 O2 Sat by Pulse Oximetry 97 11/24/17 17:54 Temperature 98.2 F 11/25/17 04:00 Pulse Rate 107 11/25/17 04:00 Respiratory Rate 16 11/25/17 04:00 Blood Pressure 138/83 11/25/17 04:00 O2 Sat by Pulse Oximetry 99 11/25/17 04:44 Oxygen Delivery Oxygen Delivery Room Air Medical Decision Making - Medical Records Medical records reviewed: Yes I reviewed the patient's medical records. - Lab Data Lab results reviewed: Yes I reviewed the patient's lab results. Result diagrams: 11/24/17 18:15 11/24/17 18:15 Lab Results 11/24/17 11/24/17 11/24/17 Range/Units 18:13 18:14 18:15 WBC 9.4 (4.3-11.1) K/mcL RBC 4.62 (4.19-5.50) M/mcL Hgb 13.0 (12.9-16.9) g/dL Hct 38.8 (37.5-50.1) % MCV 84.0 (83.0-100.0) fL MCH 28.1 (28.0-33.3) pg MCHC 33.5 (31.6-35.5) g/dL RDW 14.6 H (11.5-14.5) % Plt Count 227 (140-400) K/mcL MPV 9.7 (9.4-12.4) fL Immature Gran % 0.2 (0-4) % Seg Neutrophils % 79.9 % Lymphocytes % 12.1 % Monocytes % 6.5 % Eosinophils % 0.9 % Basophils % 0.4 % Neutrophils # 7.5 (1.6-8.9) K/mcL Lymphocytes # 1.1 (0.6-4.6) K/mcL Monocytes # 0.6 (0.0-1.3) K/mcL Eosinophils # 0.1 (0.0-0.6) K/mcL Basophils # 0.0 (0.0-0.2) K/mcL PT (9.4-12.1) Seconds INR APTT (26.0-36.0) Seconds Sodium (136-145) mEq/L Potassium (3.5-5.1) mEq/L Chloride (98-107) mEq/L Carbon Dioxide (23-29) mEq/L BUN (6-20) mg/dL Creatinine (0.70-1.30) mg/dL Est GFR ( Amer) (> 60) Est GFR (Non-Af Amer) (> 60) BUN/Creatinine Ratio (6-26) Glucose (70-105) mg/dL POC Glucose 274 H 238 H (70-99) mg/dL Calculated Osmolality (280-300) Calcium (8.6-10.3) mg/dL Total Bilirubin (0.3-1.0) mg/dL Direct Bilirubin (0.0-0.2) mg/dL Indirect Bilirubin (0.0-1.2) mg/dL AST (13-39) Units/L ALT (7-52) Units/L Alkaline Phosphatase (34-104) Units/L Troponin I (< 0.04) ng/mL Serum Total Protein (6.4-8.9) g/dL Albumin (3.5-5.7) g/dL Globulin (2.4-3.5) g/dL Albumin/Globulin Ratio (1.1-2.2) Urine Color (Yellow) Urine Clarity (Clear) Urine pH (5.0-8.0) pH Units Ur Specific [place] (1.010-1.025) Urine Protein (Neg-Trace) mg/dL Urine Glucose (UA) (Normal) mg/dL Urine Ketones (Negative) mg/dL Urine Blood (Negative) Urine Nitrite (Negative) Urine Bilirubin (Negative) Urine Urobilinogen (Normal) mg/dL Ur Leukocyte Esterase (Negative) Urine Microscopic RBC (0-3) per hpf Urine Microscopic WBC (0-3) per hpf Ur Squamous Epith Cells (None-Few) per lpf Urine Bacteria (None-Few) per hpf Hyaline Casts (None-Few) per lpf Urine Sperm Ur Culture Indicated? (NO) Urine Opiates Screen (Jxzndm=101) ng/mL Ur Barbiturates Screen (Obgxor=467) ng/mL Ur Phencyclidine Scrn (Cutoff=25) ng/mL Ur Amphetamines Screen (Gzvpgj=5617) ng/mL U Benzodiazepines Scrn (Twhujz=075) ng/mL Urine Cocaine Screen (Cutoff= 300) ng/mL U Marijuana (THC) Screen (Cutoff = 50) ng/mL Ur Drug Screen Interp Ethyl Alcohol (Less than 10) mg/dL 11/24/17 11/24/17 11/24/17 Range/Units 18:15 18:15 18:23 WBC (4.3-11.1) K/mcL RBC (4.19-5.50) M/mcL Hgb (12.9-16.9) g/dL Hct (37.5-50.1) % MCV (83.0-100.0) fL MCH (28.0-33.3) pg MCHC (31.6-35.5) g/dL RDW (11.5-14.5) % Plt Count (140-400) K/mcL MPV (9.4-12.4) fL Immature Gran % (0-4) % Seg Neutrophils % % Lymphocytes % % Monocytes % % Eosinophils % % Basophils % % Neutrophils # (1.6-8.9) K/mcL Lymphocytes # (0.6-4.6) K/mcL Monocytes # (0.0-1.3) K/mcL Eosinophils # (0.0-0.6) K/mcL Basophils # (0.0-0.2) K/mcL PT 12.6 H (9.4-12.1) Seconds INR 1.1 APTT 25.4 L (26.0-36.0) Seconds Sodium 142 (136-145) mEq/L Potassium 3.8 (3.5-5.1) mEq/L Chloride 110 H (98-107) mEq/L Carbon Dioxide 24 (23-29) mEq/L BUN 18 (6-20) mg/dL Creatinine 1.37 H (0.70-1.30) mg/dL Est GFR ( Amer) > 60 (> 60) Est GFR (Non-Af Amer) 57 L (> 60) BUN/Creatinine Ratio 13 (6-26) Glucose 256 H (70-105) mg/dL POC Glucose (70-99) mg/dL Calculated Osmolality 305 H (280-300) Calcium 9.5 (8.6-10.3) mg/dL Total Bilirubin 0.5 (0.3-1.0) mg/dL Direct Bilirubin 0.2 (0.0-0.2) mg/dL Indirect Bilirubin 0.3 (0.0-1.2) mg/dL AST 19 (13-39) Units/L ALT 25 (7-52) Units/L Alkaline Phosphatase 67 (34-104) Units/L Troponin I < 0.03 (< 0.04) ng/mL Serum Total Protein 7.0 (6.4-8.9) g/dL Albumin 4.2 (3.5-5.7) g/dL Globulin 2.8 (2.4-3.5) g/dL Albumin/Globulin Ratio 1.5 (1.1-2.2) Urine Color Yellow (Yellow) Urine Clarity Cloudy A (Clear) Urine pH 5.5 (5.0-8.0) pH Units Ur Specific [place] 1.029 H (1.010-1.025) Urine Protein 30 H (Neg-Trace) mg/dL Urine Glucose (UA) 250 H (Normal) mg/dL Urine Ketones Negative (Negative) mg/dL Urine Blood Small H (Negative) Urine Nitrite Negative (Negative) Urine Bilirubin Negative (Negative) Urine Urobilinogen Normal (Normal) mg/dL Ur Leukocyte Esterase Negative (Negative) Urine Microscopic RBC 5-15 H (0-3) per hpf Urine Microscopic WBC 0-3 (0-3) per hpf Ur Squamous Epith Cells Many H (None-Few) per lpf Urine Bacteria None Seen (None-Few) per hpf Hyaline Casts Few (None-Few) per lpf Urine Sperm Present Ur Culture Indicated? NO (NO) Urine Opiates Screen (Fztueq=799) ng/mL Ur Barbiturates Screen (Aovnqk=119) ng/mL Ur Phencyclidine Scrn (Cutoff=25) ng/mL Ur Amphetamines Screen (Blzuub=8545) ng/mL U Benzodiazepines Scrn (Eitmbv=395) ng/mL Urine Cocaine Screen (Cutoff= 300) ng/mL U Marijuana (THC) Screen (Cutoff = 50) ng/mL Ur Drug Screen Interp Ethyl Alcohol < 10 (Less than 10) mg/dL 11/24/17 Range/Units 18:23 WBC (4.3-11.1) K/mcL RBC (4.19-5.50) M/mcL Hgb (12.9-16.9) g/dL Hct (37.5-50.1) % MCV (83.0-100.0) fL MCH (28.0-33.3) pg MCHC (31.6-35.5) g/dL RDW (11.5-14.5) % Plt Count (140-400) K/mcL MPV (9.4-12.4) fL Immature Gran % (0-4) % Seg Neutrophils % % Lymphocytes % % Monocytes % % Eosinophils % % Basophils % % Neutrophils # (1.6-8.9) K/mcL Lymphocytes # (0.6-4.6) K/mcL Monocytes # (0.0-1.3) K/mcL Eosinophils # (0.0-0.6) K/mcL Basophils # (0.0-0.2) K/mcL PT (9.4-12.1) Seconds INR APTT (26.0-36.0) Seconds Sodium (136-145) mEq/L Potassium (3.5-5.1) mEq/L Chloride (98-107) mEq/L Carbon Dioxide (23-29) mEq/L BUN (6-20) mg/dL Creatinine (0.70-1.30) mg/dL Est GFR ( Amer) (> 60) Est GFR (Non-Af Amer) (> 60) BUN/Creatinine Ratio (6-26) Glucose (70-105) mg/dL POC Glucose (70-99) mg/dL Calculated Osmolality (280-300) Calcium (8.6-10.3) mg/dL Total Bilirubin (0.3-1.0) mg/dL Direct Bilirubin (0.0-0.2) mg/dL Indirect Bilirubin (0.0-1.2) mg/dL AST (13-39) Units/L ALT (7-52) Units/L Alkaline Phosphatase (34-104) Units/L Troponin I (< 0.04) ng/mL Serum Total Protein (6.4-8.9) g/dL Albumin (3.5-5.7) g/dL Globulin (2.4-3.5) g/dL Albumin/Globulin Ratio (1.1-2.2) Urine Color (Yellow) Urine Clarity (Clear) Urine pH (5.0-8.0) pH Units Ur Specific [place] (1.010-1.025) Urine Protein (Neg-Trace) mg/dL Urine Glucose (UA) (Normal) mg/dL Urine Ketones (Negative) mg/dL Urine Blood (Negative) Urine Nitrite (Negative) Urine Bilirubin (Negative) Urine Urobilinogen (Normal) mg/dL Ur Leukocyte Esterase (Negative) Urine Microscopic RBC (0-3) per hpf Urine Microscopic WBC (0-3) per hpf Ur Squamous Epith Cells (None-Few) per lpf Urine Bacteria (None-Few) per hpf Hyaline Casts (None-Few) per lpf Urine Sperm Ur Culture Indicated? (NO) Urine Opiates Screen Negative (Mzhxtb=537) ng/mL Ur Barbiturates Screen Negative (Ojfnlr=811) ng/mL Ur Phencyclidine Scrn Negative (Cutoff=25) ng/mL Ur Amphetamines Screen Positive H (Lctyim=5117) ng/mL U Benzodiazepines Scrn Negative (Ejyfjb=830) ng/mL Urine Cocaine Screen Negative (Cutoff= 300) ng/mL U Marijuana (THC) Screen Negative (Cutoff = 50) ng/mL Ur Drug Screen Interp See Below Ethyl Alcohol (Less than 10) mg/dL - Radiology Data Radiology results reviewed: Yes I reviewed the patient's radiology results. Head CT 11/24/17 18:03 IMPRESSION: No acute intracranial abnormality. D/ / Clarke Menchaca MD / Clarke Menchaca MD Interpreting Provider: Clarke Menchaca MD Chest X-Ray 11/24/17 18:04 IMPRESSION: No acute findings. D/ / 11/24/2017 19:08:22 Rubén Starr MD / zaria Interpreting Provider: Rubén Starr MD - EKG Data EKG #1 EKG attestation: Yes I reviewed and interpreted this EKG. EKG results narrative: EKG done at 617:57 shows sinus tachycardia at a rate of 104 bpm. Normal axis. Normal intervals. No signs of ST elevation, ST depression or Q waves present. Attestation Statement - Attestation Attestation: I examined this patient and my medical decision-making was reviewed with the Resident Physician. I agree with the documented findings, disposition and treatment plan as described except to the extent set forth below. Findings consistent with amphetamine psychosis. Patient will need admission for medical clearance given ongoing tachycardia and confusion. Poison control was contacted. The patient will be admitted with consults to poison control and psychiatry. IV fluids were given.
[2017-11-24] MEDS ORDERED: 0.9 % Sodium Chloride 1,000 ML IVC ONE (19:57)
--- NOTE | 2017-11-24 19:57 | Emergency Department Note ---
Disposition Clinical Impression: Confusion Fever Qualifiers: Fever type: unspecified Qualified Code(s): R50.9 - Fever, unspecified Disposition: Admitted As Inpatient Condition: Undetermined Time of Disposition: 20:01 General Adult HPI - General Chief complaint: ED Fall Stated complaint: Fall Time Seen by Provider: 11/24/17 17:56 Source: EMS Limitations: altered mental status Nursing Notes Reviewed: Yes Vital Signs Reviewed: Yes - History of Present Illness HPI Narrative: 42-year-old male [place] scene via EMS. Per EMS, patient was seen on security footage stumbling around the gastric station and, shortly thereafter, found laying on the ground outside wherein EMS was called. On arrival, patient spontaneously is opening his eyes, he is warm and diaphoretic, he will follow commands with his eyes but is not speaking. ROS not obtainable secondary to patient's medical condition. Pain Scale: 0 - Related Data Previous Rx's Medication Instructions Recorded hydrOXYzine pamoate [HydrOXYzine 25 mg PO TID PRN #120 capsule 11/16/17 Pamoate] Buspirone HCl [Buspar] 15 mg PO BID #60 tablet 11/23/17 Ibuprofen [Motrin] 800 mg PO Q6-8H PRN #30 tablet 11/23/17 Allergies Allergy/AdvReac Type Severity Reaction Status Date / Time chlorpromazine Allergy Difficulty Verified 11/23/17 09:20 [From Thorazine] Breathing haloperidol [From Haldol] Allergy Difficulty Verified 11/23/17 09:20 Breathing hydroxyzine [From Vistaril] Allergy Rash Verified 11/23/17 09:24 risperidone [From Risperdal] AdvReac Difficulty Verified 11/23/17 09:20 Breathing ziprasidone [From Geodon] AdvReac Difficulty Verified 11/23/17 09:20 Breathing Limitations: ROS unobtainable due to patients medical condition Past Medical History - Past Medical History Medical history: Reports: other Surgical history: Reports: non-contributory Psychiatric history: Reports: anxiety, depression, previous psychiatric hospitalization, other - Social History Smoking Status: Current every day smoker Smokeless Tobacco Status: No Alcohol use: Reports: none Drug use: Reports: prescription drug abuse Physical Exam Primary survey: Airway: Intact; patient is mumbling incoherently. Breathing: No chest wall tenderness. Bilateral breath sounds equal. Circulation: Bilateral radial, posterior tibial, pulses 2/4. No hemorrhaging. Disability: GCS 14 (eyes 4, verbal 2, motor 6). He will go his fingers and toes to commands. Exposure: No abrasions, lacerations, ecchymosis, or hematomas on the patient's scalp or face, trunk, extremities. Secondary survey Vital Signs Reviewed General: Patient is awake, protecting his airway. Responsive to Gage catheter and IV insertion. HEENT: No facial asymmetry. Head is normocephalic and atraumatic. Pupils 5 mm , equal bilaterally, nonreactive to light. EOMI. Nasal turbinates moist and pink without epistaxis or substance. White aristides on the right side of patient's nose concerning for possible burn. Oral mucosa moist. Tympanic membranes without hemotympanum bilaterally. Cardiovascular: Heart regular rate and rhythm without clicks, rubs, gallops, or murmurs. No JVD. PMI nondisplaced. Respiratory: Symmetric chest rise with good respiratory effort. Bilateral breath sounds are clear without wheezing, crackles, or rhonchi. Abdomen: Bowel sounds present normoactive x-4 quadrants. Abdomen is soft, nondistended, and nontender. No organomegaly noted. Musculoskeletal: Spontaneously moving all extremities. Full range of motion in upper and lower extremities. Neuro: Sensation light touch intact. Psych: Patient's affect is appropriate for situation. - General Limitations: altered mental status General appearance: alert, lethargic Course Course Narrative: On arrival, patient is febrile-provider rectal Tylenol. He will open his mouth and wiggle his fingers to command however, he mumbles in coherently. He is protecting his airway. Initially we had no medical history the patient and he was unable to provide us with his medical history or events that led up to his current situation. Initial concern was for cerebral versus toxicologic etiology. The white aristides on the side of his nose appears to be possible since from a skate boarder. Given patient's presentation, hyperthermia, dilated pupils concern for an amphetamine use such as smoking from a short pipe. CT head shows no intracranial bleed on my review well as per radiology read. Chest x-ray unremarkable per radiology read. Patient required restraint during Gage catheter placement. He was shelved no anal pouch-this was during Betadine and before catheter placement. He did allow us to place the catheter and was comfortable afterwards. He was still unable to provide us with history of his present illness as well as past medical history. Chart check shows patient was seen in your care yesterday for concern of anxiety and discharge home with diagnosis of anxiety. Next Chart check shows patient was evaluated by mental health services on 11/15 while he was in the emergency department for suicidal thoughts-he threatened to jump off a bridge because he was out of benzodiazepines and methadone. He was admitted to . Patient has been signed out to the night team, Dr. Durbin and Dr. Bah. Pending: Laboratory workup including toxicology evaluation. Head CT 11/24/17 18:03 IMPRESSION: No acute intracranial abnormality. D/ / Clarke Menchaca MD / Clarke Menchaca MD Interpreting Provider: Clarke Menchaca MD Chest X-Ray 11/24/17 18:04 IMPRESSION: No acute findings. D/ / 11/24/2017 19:08:22 Rubén Starr MD / zaria Interpreting Provider: Rubén Starr MD Vital Signs Temperature 101 F H 11/24/17 17:54 Pulse Rate 131 11/24/17 17:54 Respiratory Rate 18 11/24/17 17:54 Blood Pressure 172/117 11/24/17 17:54 O2 Sat by Pulse Oximetry 97 11/24/17 17:54 Temperature 98.9 F 11/25/17 15:58 Pulse Rate 100 11/25/17 15:58 Respiratory Rate 22 11/25/17 15:58 Blood Pressure 150/90 11/25/17 15:58 O2 Sat by Pulse Oximetry 98 11/25/17 15:58 Oxygen Delivery Oxygen Delivery Room Air Medical Decision Making - Lab Data Result diagrams: 11/25/17 06:41 11/25/17 06:41 Lab Results 11/24/17 11/24/17 11/24/17 Range/Units 18:13 18:14 18:15 WBC 9.4 (4.3-11.1) K/mcL RBC 4.62 (4.19-5.50) M/mcL Hgb 13.0 (12.9-16.9) g/dL Hct 38.8 (37.5-50.1) % MCV 84.0 (83.0-100.0) fL MCH 28.1 (28.0-33.3) pg MCHC 33.5 (31.6-35.5) g/dL RDW 14.6 H (11.5-14.5) % Plt Count 227 (140-400) K/mcL MPV 9.7 (9.4-12.4) fL Immature Gran % 0.2 (0-4) % Seg Neutrophils % 79.9 % Lymphocytes % 12.1 % Monocytes % 6.5 % Eosinophils % 0.9 % Basophils % 0.4 % Neutrophils # 7.5 (1.6-8.9) K/mcL Lymphocytes # 1.1 (0.6-4.6) K/mcL Monocytes # 0.6 (0.0-1.3) K/mcL Eosinophils # 0.1 (0.0-0.6) K/mcL Basophils # 0.0 (0.0-0.2) K/mcL PT (9.4-12.1) Seconds INR APTT (26.0-36.0) Seconds Sodium (136-145) mEq/L Potassium (3.5-5.1) mEq/L Chloride (98-107) mEq/L Carbon Dioxide (23-29) mEq/L BUN (6-20) mg/dL Creatinine (0.70-1.30) mg/dL Est GFR ( Amer) (> 60) Est GFR (Non-Af Amer) (> 60) BUN/Creatinine Ratio (6-26) Glucose (70-105) mg/dL POC Glucose 274 H 238 H (70-99) mg/dL Calculated Osmolality (280-300) Calcium (8.6-10.3) mg/dL Total Bilirubin (0.3-1.0) mg/dL Direct Bilirubin (0.0-0.2) mg/dL Indirect Bilirubin (0.0-1.2) mg/dL AST (13-39) Units/L ALT (7-52) Units/L Alkaline Phosphatase (34-104) Units/L Troponin I (< 0.04) ng/mL Serum Total Protein (6.4-8.9) g/dL Albumin (3.5-5.7) g/dL Globulin (2.4-3.5) g/dL Albumin/Globulin Ratio (1.1-2.2) Urine Color (Yellow) Urine Clarity (Clear) Urine pH (5.0-8.0) pH Units Ur Specific [place] (1.010-1.025) Urine Protein (Neg-Trace) mg/dL Urine Glucose (UA) (Normal) mg/dL Urine Ketones (Negative) mg/dL Urine Blood (Negative) Urine Nitrite (Negative) Urine Bilirubin (Negative) Urine Urobilinogen (Normal) mg/dL Ur Leukocyte Esterase (Negative) Urine Microscopic RBC (0-3) per hpf Urine Microscopic WBC (0-3) per hpf Ur Squamous Epith Cells (None-Few) per lpf Urine Bacteria (None-Few) per hpf Hyaline Casts (None-Few) per lpf Urine Sperm Ur Culture Indicated? (NO) Urine Opiates Screen (Vohftv=086) ng/mL Ur Barbiturates Screen (Ijllph=160) ng/mL Ur Phencyclidine Scrn (Cutoff=25) ng/mL Ur Amphetamines Screen (Xyakad=6030) ng/mL U Benzodiazepines Scrn (Poawds=271) ng/mL Urine Cocaine Screen (Cutoff= 300) ng/mL U Marijuana (THC) Screen (Cutoff = 50) ng/mL Ur Drug Screen Interp Ethyl Alcohol (Less than 10) mg/dL 11/24/17 11/24/17 11/24/17 Range/Units 18:15 18:15 18:23 WBC (4.3-11.1) K/mcL RBC (4.19-5.50) M/mcL Hgb (12.9-16.9) g/dL Hct (37.5-50.1) % MCV (83.0-100.0) fL MCH (28.0-33.3) pg MCHC (31.6-35.5) g/dL RDW (11.5-14.5) % Plt Count (140-400) K/mcL MPV (9.4-12.4) fL Immature Gran % (0-4) % Seg Neutrophils % % Lymphocytes % % Monocytes % % Eosinophils % % Basophils % % Neutrophils # (1.6-8.9) K/mcL Lymphocytes # (0.6-4.6) K/mcL Monocytes # (0.0-1.3) K/mcL Eosinophils # (0.0-0.6) K/mcL Basophils # (0.0-0.2) K/mcL PT 12.6 H (9.4-12.1) Seconds INR 1.1 APTT 25.4 L (26.0-36.0) Seconds Sodium 142 (136-145) mEq/L Potassium 3.8 (3.5-5.1) mEq/L Chloride 110 H (98-107) mEq/L Carbon Dioxide 24 (23-29) mEq/L BUN 18 (6-20) mg/dL Creatinine 1.37 H (0.70-1.30) mg/dL Est GFR ( Amer) > 60 (> 60) Est GFR (Non-Af Amer) 57 L (> 60) BUN/Creatinine Ratio 13 (6-26) Glucose 256 H (70-105) mg/dL POC Glucose (70-99) mg/dL Calculated Osmolality 305 H (280-300) Calcium 9.5 (8.6-10.3) mg/dL Total Bilirubin 0.5 (0.3-1.0) mg/dL Direct Bilirubin 0.2 (0.0-0.2) mg/dL Indirect Bilirubin 0.3 (0.0-1.2) mg/dL AST 19 (13-39) Units/L ALT 25 (7-52) Units/L Alkaline Phosphatase 67 (34-104) Units/L Troponin I < 0.03 (< 0.04) ng/mL Serum Total Protein 7.0 (6.4-8.9) g/dL Albumin 4.2 (3.5-5.7) g/dL Globulin 2.8 (2.4-3.5) g/dL Albumin/Globulin Ratio 1.5 (1.1-2.2) Urine Color Yellow (Yellow) Urine Clarity Cloudy A (Clear) Urine pH 5.5 (5.0-8.0) pH Units Ur Specific [place] 1.029 H (1.010-1.025) Urine Protein 30 H (Neg-Trace) mg/dL Urine Glucose (UA) 250 H (Normal) mg/dL Urine Ketones Negative (Negative) mg/dL Urine Blood Small H (Negative) Urine Nitrite Negative (Negative) Urine Bilirubin Negative (Negative) Urine Urobilinogen Normal (Normal) mg/dL Ur Leukocyte Esterase Negative (Negative) Urine Microscopic RBC 5-15 H (0-3) per hpf Urine Microscopic WBC 0-3 (0-3) per hpf Ur Squamous Epith Cells Many H (None-Few) per lpf Urine Bacteria None Seen (None-Few) per hpf Hyaline Casts Few (None-Few) per lpf Urine Sperm Present Ur Culture Indicated? NO (NO) Urine Opiates Screen (Lvxybg=089) ng/mL Ur Barbiturates Screen (Uzufxn=823) ng/mL Ur Phencyclidine Scrn (Cutoff=25) ng/mL Ur Amphetamines Screen (Bezbep=6297) ng/mL U Benzodiazepines Scrn (Qpvbbk=619) ng/mL Urine Cocaine Screen (Cutoff= 300) ng/mL U Marijuana (THC) Screen (Cutoff = 50) ng/mL Ur Drug Screen Interp Ethyl Alcohol < 10 (Less than 10) mg/dL 11/24/17 Range/Units 18:23 WBC (4.3-11.1) K/mcL RBC (4.19-5.50) M/mcL Hgb (12.9-16.9) g/dL Hct (37.5-50.1) % MCV (83.0-100.0) fL MCH (28.0-33.3) pg MCHC (31.6-35.5) g/dL RDW (11.5-14.5) % Plt Count (140-400) K/mcL MPV (9.4-12.4) fL Immature Gran % (0-4) % Seg Neutrophils % % Lymphocytes % % Monocytes % % Eosinophils % % Basophils % % Neutrophils # (1.6-8.9) K/mcL Lymphocytes # (0.6-4.6) K/mcL Monocytes # (0.0-1.3) K/mcL Eosinophils # (0.0-0.6) K/mcL Basophils # (0.0-0.2) K/mcL PT (9.4-12.1) Seconds INR APTT (26.0-36.0) Seconds Sodium (136-145) mEq/L Potassium (3.5-5.1) mEq/L Chloride (98-107) mEq/L Carbon Dioxide (23-29) mEq/L BUN (6-20) mg/dL Creatinine (0.70-1.30) mg/dL Est GFR ( Amer) (> 60) Est GFR (Non-Af Amer) (> 60) BUN/Creatinine Ratio (6-26) Glucose (70-105) mg/dL POC Glucose (70-99) mg/dL Calculated Osmolality (280-300) Calcium (8.6-10.3) mg/dL Total Bilirubin (0.3-1.0) mg/dL Direct Bilirubin (0.0-0.2) mg/dL Indirect Bilirubin (0.0-1.2) mg/dL AST (13-39) Units/L ALT (7-52) Units/L Alkaline Phosphatase (34-104) Units/L Troponin I (< 0.04) ng/mL Serum Total Protein (6.4-8.9) g/dL Albumin (3.5-5.7) g/dL Globulin (2.4-3.5) g/dL Albumin/Globulin Ratio (1.1-2.2) Urine Color (Yellow) Urine Clarity (Clear) Urine pH (5.0-8.0) pH Units Ur Specific [place] (1.010-1.025) Urine Protein (Neg-Trace) mg/dL Urine Glucose (UA) (Normal) mg/dL Urine Ketones (Negative) mg/dL Urine Blood (Negative) Urine Nitrite (Negative) Urine Bilirubin (Negative) Urine Urobilinogen (Normal) mg/dL Ur Leukocyte Esterase (Negative) Urine Microscopic RBC (0-3) per hpf Urine Microscopic WBC (0-3) per hpf Ur Squamous Epith Cells (None-Few) per lpf Urine Bacteria (None-Few) per hpf Hyaline Casts (None-Few) per lpf Urine Sperm Ur Culture Indicated? (NO) Urine Opiates Screen Negative (Sguvgu=063) ng/mL Ur Barbiturates Screen Negative (Xyduvz=201) ng/mL Ur Phencyclidine Scrn Negative (Cutoff=25) ng/mL Ur Amphetamines Screen Positive H ([id number]) ng/mL U Benzodiazepines Scrn Negative (Nadxrc=612) ng/mL Urine Cocaine Screen Negative (Cutoff= 300) ng/mL U Marijuana (THC) Screen Negative (Cutoff = 50) ng/mL Ur Drug Screen Interp See Below Ethyl Alcohol (Less than 10) mg/dL
[2017-11-24] MEDS ORDERED: *HR* LORazepam 1 MG TABLET PO ONE (22:17)
[2017-11-24] MEDS ORDERED: *HR* LORazepam 2 MG/ML VIAL IVP STA (22:23)
[2017-11-24] MEDS: 0.9 % Sodium Chloride 1,000 ML IVC SCH (22:46)
--- NOTE | 2017-11-24 23:23 | Internal Med History&Physical ---
Date of Encounter: 11/25/17 Time of Encounter: 23:23 Internal Medicine - H&P: HPI Chief complaint: unresponsive History of present illness: 42-year-old male [place] scene via EMS. patient was seen on security footage stumbling around the gastric station and, shortly thereafter, found laying on the ground outside wherein EMS was called. On arrival, patient spontaneously is opening his eyes but is not speaking. CT head shows no intracranial bleed. Chest x-ray unremarkable. Laboratory data revealed elevated creatinine of 1.3 which is apparently is above his baseline . He is unable to provide history about prior kidney disease and was admitted for further evaluation. Past Med Surg Social Fam HX - Past Medical History Medical history: other Additional medical history: PTSD, ANXIETY DISORDER Psychiatric history: anxiety, depression, previous psychiatric hospitalization, other - Past Surgical History Surgical History: non-contributory Additional surgical history: Jaw Sx, - Social History Smoking Status: Current every day smoker Smokeless Tobacco Status: No Alcohol use: none Drug use: prescription drug abuse Internal Medicine - H&P: Meds hydrOXYzine pamoate [HydrOXYzine Pamoate] 25 mg PO TID PRN #120 capsule [Rx] Buspirone HCl [Buspar] 15 mg PO BID #60 tablet 11/23/17 [Rx] Ibuprofen [Motrin] 800 mg PO Q6-8H PRN #30 tablet 11/23/17 [Rx] 3 Allergy/AdvReac Type Severity Reaction Status Date / Time chlorpromazine Allergy Difficulty Verified 11/23/17 09:20 [From Thorazine] Breathing haloperidol [From Haldol] Allergy Difficulty Verified 11/23/17 09:20 Breathing hydroxyzine [From Vistaril] Allergy Rash Verified 11/23/17 09:24 risperidone [From Risperdal] AdvReac Difficulty Verified 11/23/17 09:20 Breathing ziprasidone [From Geodon] AdvReac Difficulty Verified 11/23/17 09:20 Breathing ROS unobtainable: due to mental status All Systems PM: A 10-system review of systems was performed and is negative for pertinent findings except as documented above in the HPI. - Constitutional Vitals: Temp Pulse Resp BP Pulse Ox 101 F H 127 28 154/90 95 11/24/17 17:54 11/24/17 22:47 11/24/17 22:47 11/24/17 22:47 11/24/17 22:47 General appearance: Present: A&O X 3 - Neck Neck exam general surgery: Present: supple, trachea midline. Absent: lymphadenopathy - Respiratory Respiratory exam: Present: CTAB. Absent: accessory muscle use, rales, rhonchi, wheezes - Cardiovascular Cardiovascular exam: Present: RRR, +S1, +S2. Absent: diastolic murmur, gallop, rubs, systolic murmur - GI/Abdominal GI/Abdominal exam: Present: normal bowel sounds, soft, no peritoneal signs. Absent: distended, tenderness - Extremities Exam Extremities exam: Present: warm, radial pulses palpable and symmetrical. Absent : calf tenderness, cyanotic, pedal edema Internal Med - H&P Results - Labs CBC & Chem 7: 11/24/17 18:15 11/24/17 18:15 - Assessment and plan (1) Amphetamine abuse Current Visit: Yes Status: Acute Assessment and plan: The patient urine drug screen is positive for amphetamine, he is hemodynamically stable except for mild tachycardia, and agitation, we will continue supportive measures including Ativan when necessary for agitation. (2) Acute kidney injury Current Visit: Yes Status: Acute Assessment and plan: Most likely secondary to prerenal H urology due to volume depletion in the setting of decreased oral intake due to drug abuse, will start patient on IV hydration with isotonic saline, continue to monitor I/Os , renal dosing of meds as better current EGFR (3) Substance induced mood disorder Current Visit: No Status: Acute Assessment and plan: The patient is very agitated, we will continue to monitor closely and continue supportive measure with Ativan and consult psych in a.m. for further evaluation and management (4) Anxiety Current Visit: No Status: Acute Assessment and plan: We will hold home meds for now, consult psych in a.m. - Time Spent With Patient Total time spent is greater than 50% in coordination of care (as documented) at patient's floor/unit and/or counseling patient:
[2017-11-24 23:39] LABS: Acetaminophen < 10 mcg/mL (10-20); Salicylate < 2.5 mg/dL (15.0-30.0)
[2017-11-24 23:40] LABS: Magnesium 1.8 mg/dL (1.6-2.6)
[2017-11-25] MEDS ORDERED: *HR* LORazepam 2 MG/ML VIAL IVP ONE (01:29)
[2017-11-25] MEDS ORDERED: Naloxone 0.4 MG/ML INJ IVP PRN (03:12)
[2017-11-25] MEDS ORDERED: 0.9 % Sodium Chloride 1,000 ML IVC SCH (03:15)
[2017-11-25 06:54] LABS: Bilirubin,Urine Negative (Negative); Blood,Urine Large (Negative); Clarity,Urine Clear (Clear); Color,Urine Yellow (Yellow); Glucose,Urine (UA) Normal (Normal); Ketones,Urine Negative (Negative); Leukocyte Esterase,Urine Negative (Negative); Nitrite,Urine Negative (Negative); Protein,Urine 30 mg/dL (Neg-Trace); Specific Gravity,Urine 1.028 (1.010-1.025); Urobilinogen,Urine Normal (Normal)
[2017-11-25 06:57] LABS: Bacteria,Urine None Seen per hpf (None-Few); Hyaline Casts,Urine None Seen per lpf (None-Few); RBC,Urine TNTC per hpf (0-3); Squamous Epithelial Cell,Urine Many per lpf (None-Few)
[2017-11-25 07:20] LABS: Hematocrit 38.9 % (37.5-50.1); Hemoglobin 12.8 g/dL (12.9-16.9); Mean Corpuscular HGB Conc 32.9 g/dL (31.6-35.5); Mean Corpuscular Hemoglobin 27.9 pg (28.0-33.3); Mean Corpuscular Volume 84.9 fL (83.0-100.0); Mean Platelet Volume 9.8 fL (9.4-12.4); Platelet Count 180 K/mcL (140-400); Red Blood Count 4.58 M/mcL (4.19-5.50); Red Cell Distribution Width 14.6 % (11.5-14.5)
[2017-11-25 07:27] LABS: INR 1.2; Prothrombin Time 13.3 Seconds (9.4-12.1)
[2017-11-25 07:29] LABS: Activated Partial Thrombo Time 27.1 Seconds (26.0-36.0)
[2017-11-25 07:41] LABS: Alanine Aminotransferase 21 Units/L (7-52); Albumin 3.8 g/dL (3.5-5.7); Albumin/Globulin Ratio 1.5 (1.1-2.2); Alkaline Phosphatase 60 Units/L (34-104); Aspartate Amino Transferase 16 Units/L (13-39); BUN/Creatinine Ratio 10 (6-26); Blood Urea Nitrogen 9 mg/dL (6-20); Calcium 8.6 mg/dL (8.6-10.3); Carbon Dioxide 26 mEq/L (23-29); Chloride 110 mEq/L (98-107); Chol/HDL Ratio 2.3 (0-4.9); Cholesterol 100 mg/dL (< 200); Globulin 2.6 g/dL (2.4-3.5); Glucose 104 mg/dL (70-105); HDL Cholesterol 44 mg/dL (40-59); LDL Cholesterol,Calculated 44 mg/dL (0-99); Osmolality,Calculated 293 (280-300); Phosphorous 2.9 mg/dL (2.7-4.5); Potassium 3.3 mEq/L (3.5-5.1); Sodium 142 mEq/L (136-145); Total Protein 6.4 g/dL (6.4-8.9); Triglycerides 61 mg/dL (< 150); eGFR For African Americans > 60 (> 60); eGFR For Non-African Americans > 60 (> 60)
[2017-11-25] MEDS: 0.9 % Sodium Chloride 1,000 ML IVC SCH (10:08)
--- NOTE | 2017-11-25 10:57 | Discharge Summary ---
- NOTES TO OUTPATIENT PROVIDER Notes to Outpatient Provider: LEft AMA Date of Encounter: 11/26/17 Time of Encounter: 10:55 - Discharge Diagnosis (1) Substance induced mood disorder Priority: Primary Status: Acute (2) Anxiety Priority: Secondary Status: Chronic (3) Acute kidney injury Priority: Primary Status: Resolved (4) Amphetamine abuse Priority: Primary Status: Acute (5) Psychosis Priority: Primary Status: Acute Qualifiers: Psychosis type: unspecified psychosis type Qualified Code(s): F29 - Unspecified psychosis not due to a substance or known physiological condition Hospital course: Mr. Beavers is a 42 year old male with hx of polysubstance abuse BIBEMS from a filling station after bizarre behaviour DENIA on presentation, which has resolved with IVF hydration Patient is psychotic with rapid pressures speech, paranoia, believes someone is planning to kill him in the hospital, threatening and refusing to take his medications He is worried his credit/debit card and phones have been changes He is now hemodynamically stable He denies suicidal ideation and will not hurt himself He is AAOX3 After review by psych, recommendations were for SW and detox and haldol prn However, patient decided to leave AMA. Discharge discussed with: patient, nurse Time spent discussing smoking cessation with patient: 3 to 10 minutes - Time Spent with Patient Total time spent providing and/or coordinating discharge services: Greater than 30 minutes - Discharge Medications Home Medications: hydrOXYzine pamoate [HydrOXYzine Pamoate] 25 mg PO TID PRN #120 capsule [Rx] Buspirone HCl [Buspar] 15 mg PO BID #60 tablet 11/23/17 [Rx] Ibuprofen [Motrin] 800 mg PO Q6-8H PRN #30 tablet 11/23/17 [Rx] Allergies/Adverse Reactions: 3 Allergy/AdvReac Type Severity Reaction Status Date / Time chlorpromazine Allergy Difficulty Verified 11/23/17 09:20 [From Thorazine] Breathing haloperidol [From Haldol] Allergy Difficulty Verified 11/23/17 09:20 Breathing hydroxyzine [From Vistaril] Allergy Rash Verified 11/23/17 09:24 risperidone [From Risperdal] AdvReac Difficulty Verified 11/23/17 09:20 Breathing ziprasidone [From Geodon] AdvReac Difficulty Verified 11/23/17 09:20 Breathing Date of admission: 11/24/17 22:22 Primary care physician: PCP NONE Consults: 11/25/17 08:03 Consult to Psychiatry [CONS] Stat Consulting Provider: Psychiatry Dahlia Reason consult: Psychosis Discharging clinician: Deonte Farmer Anticipated date of discharge: 11/25/17 - Constitutional Vitals: Temp Pulse Resp BP Pulse Ox 98.3 F 98 16 161/108 95 11/25/17 06:42 11/25/17 06:42 11/25/17 06:42 11/25/17 06:42 11/25/17 10:16 General appearance: Present: A&O X 3, no acute distress - Head Head exam: Present: atraumatic, normocephalic - Eye Eye exam: Present: PERRL, conjuntiva pink, sclera anicteric Pupils: Present: PERRL - Neck Neck exam general surgery: Present: supple, trachea midline. Absent: lymphadenopathy - Respiratory Respiratory exam: Present: CTAB. Absent: accessory muscle use, rales, rhonchi, wheezes - Cardiovascular Cardiovascular exam: Present: RRR, +S1, +S2. Absent: diastolic murmur, gallop, rubs, systolic murmur - GI/Abdominal GI/Abdominal exam: Present: normal bowel sounds, soft, no peritoneal signs. Absent: distended, tenderness - Extremities Exam Extremities exam: Present: warm, radial pulses palpable and symmetrical. Absent : calf tenderness, cyanotic, pedal edema - Neurological Exam Neurological exam: Present: alert, CN II-XII intact, oriented X3, no focal deficits. Absent: pronater drift, facial droop, speech deficit - Psychiatric Psychiatric exam: Present: anxious Additional comments: psychotic - Skin Skin exam: Present: dry, intact - Patient Status Disposition: Left Against Medical Advice Condition: Undetermined - Discharge Instructions Follow Up With: NONE,PCP [Primary Care Provider] - Ishmael Hager [Family Provider] -
--- NOTE | 2017-11-25 13:01 | Consult Note ---
Date of Encounter: 11/25/17 Time of Encounter: 12:56 Assessment & Recommendation (1) Substance-induced psychotic disorder Current visit: Yes Status: Acute Assessment & Recommendation: Client is psychotic but suspect presentation is all substance induced. No evidence of a primary thought disorder or mood disorder. Client denies SI/HI. Would recommend giving him a prn antipsychotic like Haldol 5mg until he clears. Can use an anticholinergic like Benadryl or Cogentin if he has any EPS reactions. Would not recommend an inpatient psych unit but client would benefit from a rehab/detox facility. Social work consult for options. History of Present Illness Requesting Physician: Deonte Farmer MD Reason for consult: psychosis History of present illness: Mr. Beavers is a 42 year old male who presented to the ER after he was found in the community in an uncommunicative state. Currently he is psychotic. Talking to this rewriter about his phone being stolen and the contacts changed. Also talking about being cornered and jumped by twenty men. Thoughts are jumbled. Unable to give a clear history. However, records show he was on 1A less than two weeks ago. Stated he was suicidal but once admitted denied this was true. Insisted he wanted to come into the hospital to get his Methadone. When he realized this was not going to be possible he asked to leave. No evidence of psychosis at that time. Asked for but did not receive prescriptions for opiates and benzodiazepines. Discharged within two days with diagnoses of anxiety, polysubstnace dependence, and malingering. Suspect presentation today is all related to substance intoxication/withdrawal. There is no evidence of a primary thought disorder or mood disorder. Client denies SI/HI. States he does not want anything from mental health. CC: Deonte Farmer MD Past Med Surg Social Fam HX - Past Medical History Medical history: other - Past Psychiatric History Psychiatric history: Reports: anxiety, previous psychiatric hospitalization Family psychiatric history: Unknown Family History of Suicide: Unknown - Past Surgical History Surgical History: non-contributory - Social History Smoking Status: Current every day smoker Smokeless Tobacco Status: No Alcohol use: none Drug use: prescription drug abuse Medications & Allergies hydrOXYzine pamoate [HydrOXYzine Pamoate] 25 mg PO TID PRN #120 capsule [Rx] Buspirone HCl [Buspar] 15 mg PO BID #60 tablet 11/23/17 [Rx] Ibuprofen [Motrin] 800 mg PO Q6-8H PRN #30 tablet 11/23/17 [Rx] 3 Allergy/AdvReac Type Severity Reaction Status Date / Time chlorpromazine Allergy Difficulty Verified 11/23/17 09:20 [From Thorazine] Breathing haloperidol [From Haldol] Allergy Difficulty Verified 11/23/17 09:20 Breathing hydroxyzine [From Vistaril] Allergy Rash Verified 11/23/17 09:24 risperidone [From Risperdal] AdvReac Difficulty Verified 11/23/17 09:20 Breathing ziprasidone [From Geodon] AdvReac Difficulty Verified 11/23/17 09:20 Breathing Review of Systems Constitutional: Denies: fever, chills, weakness, weight change Eyes: Denies: eye pain, vision change Ears, Nose, Throat: Denies: ear pain, throat pain, dental pain, hearing loss, congestion Cardiovascular: Denies: chest pain, palpitations, dyspnea on exertion Respiratory: Denies: cough, dyspnea, wheezes Gastrointestinal: Denies: abdominal pain, nausea, vomiting, diarrhea, constipation Genitourinary male: Denies: urgency, dysuria, frequency, genital lesions Musculoskeletal: Denies: joint swelling, joint pain Integumentary: Denies: rash, lesions, pruritus Neurological: Denies: headache, weakness, numbness, memory loss Endocrine: Denies: fatigue, heat or cold intolerance Hematologic/Lymphatic: Denies: easy bruising, lymphadenopathy Allergic/Immunologic: Denies: urticaria, itchy eyes Psychiatry Exam - Constitutional Vitals: Temp Pulse Resp BP Pulse Ox 98.9 F 95 20 128/79 98 11/25/17 11:46 11/25/17 11:46 11/25/17 11:46 11/25/17 11:46 11/25/17 11:46 General appearance: age & developmentally appropriate, well-groomed, well- nourished - Musculoskeletal Gait: normal Station: relaxed Strength & Tone: normal for patient - Psychiatric Patient Orientation: Yes Other Level of alertness: Alert Behavior: anxious Psychomotor activity: Increased Eye Contact: Maintains Eye Contact Mood Description: Anxious Affect description: congruent with mood Speech Volume: Normal Speech pattern: normal rate, normal rhythm, normal tone, fluent, spontaneous Language & Vocabulary: consistent with education Thought Process: Tangential Thought Content: No Suicidal ideation, No Homicidal ideation, Yes Overt delusions, Yes Paranoid delusion Perceptual Disturbances: Yes Reacting to internal stimuli Attention Span Ability: Unable to Focus Memory Description: Immediate Impaired, Recent Impaired, Remote Impaired Patient Reliability: Not Reliable Historian Fund of knowledge: Yes average Intelligence Estimate: Below Average Judgment: Poor Insight: Minimal Results - Drug Levels and Toxicology Drug Levels and Toxicology: Drug Levels and Toxicity 11/24/17 23:11 Acetaminophen < 10 L - Labs Labs: Laboratory Last Values WBC 7.5 K/mcL (4.3-11.1) 11/25/17 06:41 RBC 4.58 M/mcL (4.19-5.50) 11/25/17 06:41 Hgb 12.8 g/dL (12.9-16.9) L 11/25/17 06:41 Hct 38.9 % (37.5-50.1) 11/25/17 06:41 MCV 84.9 fL (83.0-100.0) 11/25/17 06:41 MCH 27.9 pg (28.0-33.3) L 11/25/17 06:41 MCHC 32.9 g/dL (31.6-35.5) 11/25/17 06:41 RDW 14.6 % (11.5-14.5) H 11/25/17 06:41 Plt Count 180 K/mcL (140-400) 11/25/17 06:41 MPV 9.8 fL (9.4-12.4) 11/25/17 06:41 Immature Gran % 0.2 % (0-4) 11/24/17 18:15 Seg Neutrophils % 79.9 % 11/24/17 18:15 Lymphocytes % 12.1 % 11/24/17 18:15 Monocytes % 6.5 % 11/24/17 18:15 Eosinophils % 0.9 % 11/24/17 18:15 Basophils % 0.4 % 11/24/17 18:15 Neutrophils # 7.5 K/mcL (1.6-8.9) 11/24/17 18:15 Lymphocytes # 1.1 K/mcL (0.6-4.6) 11/24/17 18:15 Monocytes # 0.6 K/mcL (0.0-1.3) 11/24/17 18:15 Eosinophils # 0.1 K/mcL (0.0-0.6) 11/24/17 18:15 Basophils # 0.0 K/mcL (0.0-0.2) 11/24/17 18:15 PT 13.3 Seconds (9.4-12.1) H 11/25/17 06:41 INR 1.2 11/25/17 06:41 APTT 27.1 Seconds (26.0-36.0) 11/25/17 06:41 Sodium 142 mEq/L (136-145) 11/25/17 06:41 Potassium 3.3 mEq/L (3.5-5.1) L 11/25/17 06:41 Chloride 110 mEq/L (98-107) H 11/25/17 06:41 Carbon Dioxide 26 mEq/L (23-29) 11/25/17 06:41 BUN 9 mg/dL (6-20) 11/25/17 06:41 Creatinine 0.87 mg/dL (0.70-1.30) 11/25/17 06:41 Est GFR ( Amer) > 60 (> 60) 11/25/17 06:41 Est GFR (Non-Af Amer) > 60 (> 60) 11/25/17 06:41 BUN/Creatinine Ratio 10 (6-26) 11/25/17 06:41 Glucose 104 mg/dL (70-105) 11/25/17 06:41 POC Glucose 238 mg/dL (70-99) H 11/24/17 18:14 Calculated Osmolality 293 (280-300) 11/25/17 06:41 Calcium 8.6 mg/dL (8.6-10.3) 11/25/17 06:41 Phosphorus 2.9 mg/dL (2.7-4.5) 11/25/17 06:41 Magnesium 2.0 mg/dL (1.6-2.6) 11/25/17 06:41 Total Bilirubin 1.0 mg/dL (0.3-1.0) 11/25/17 06:41 Direct Bilirubin 0.2 mg/dL (0.0-0.2) 11/24/17 18:15 Indirect Bilirubin 0.3 mg/dL (0.0-1.2) 11/24/17 18:15 AST 16 Units/L (13-39) 11/25/17 06:41 ALT 21 Units/L (7-52) 11/25/17 06:41 Alkaline Phosphatase 60 Units/L (34-104) 11/25/17 06:41 Creatine Kinase 176 Units/L (30-223) 11/24/17 23:11 Troponin I < 0.03 ng/mL (< 0.04) 11/24/17 18:15 Serum Total Protein 6.4 g/dL (6.4-8.9) 11/25/17 06:41 Albumin 3.8 g/dL (3.5-5.7) 11/25/17 06:41 Globulin 2.6 g/dL (2.4-3.5) 11/25/17 06:41 Albumin/Globulin Ratio 1.5 (1.1-2.2) 11/25/17 06:41 Triglycerides 61 mg/dL (< 150) 11/25/17 06:41 Cholesterol 100 mg/dL (< 200) 11/25/17 06:41 LDL Cholesterol, Calc 44 mg/dL (0-99) 11/25/17 06:41 VLDL Cholesterol, Calc 12 mg/dL (< 31) 11/25/17 06:41 HDL Cholesterol 44 mg/dL (40-59) 11/25/17 06:41 Cholesterol/HDL Ratio 2.3 (0-4.9) 11/25/17 06:41 TSH 0.639 mcIU/mL (0.340-5.600) 11/24/17 23:11 Urine Color Yellow (Yellow) 11/25/17 06:10 Urine Clarity Clear (Clear) 11/25/17 06:10 Urine pH 6.0 pH Units (5.0-8.0) 11/25/17 06:10 Ur Specific [place] 1.028 (1.010-1.025) H 11/25/17 06:10 Urine Protein 30 mg/dL (Neg-Trace) H 11/25/17 06:10 Urine Glucose (UA) Normal mg/dL (Normal) 11/25/17 06:10 Urine Ketones Negative mg/dL (Negative) 11/25/17 06:10 Urine Blood Large (Negative) H 11/25/17 06:10 Urine Nitrite Negative (Negative) 11/25/17 06:10 Urine Bilirubin Negative (Negative) 11/25/17 06:10 Urine Urobilinogen Normal mg/dL (Normal) 11/25/17 06:10 Ur Leukocyte Esterase Negative (Negative) 11/25/17 06:10 Urine Microscopic RBC TNTC per hpf (0-3) H 11/25/17 06:10 Urine Microscopic WBC 5-15 per hpf (0-3) H 11/25/17 06:10 Ur Squamous Epith Cells Many per lpf (None-Few) H 11/25/17 06:10 Urine Bacteria None Seen per hpf (None-Few) 11/25/17 06:10 Hyaline Casts None Seen per lpf (None-Few) 11/25/17 06:10 Urine Sperm Present 11/24/17 18:23 Ur Culture Indicated? NO (NO) 11/24/17 18:23 Salicylates < 2.5 mg/dL (15.0-30.0) L 11/24/17 23:11 Urine Opiates Screen Negative ng/mL (Cgtlyj=718) 11/24/17 18:23 Acetaminophen < 10 mcg/mL (10-20) L 11/24/17 23:11 Ur Barbiturates Screen Negative ng/mL (Qamunk=620) 11/24/17 18:23 Ur Phencyclidine Scrn Negative ng/mL (Cutoff=25) 11/24/17 18:23 Ur Amphetamines Screen Positive ng/mL (Bisasg=6806) H 11/24/17 18:23 U Benzodiazepines Scrn Negative ng/mL (Ywzlev=122) 11/24/17 18:23 Urine Cocaine Screen Negative ng/mL (Cutoff= 300) 11/24/17 18:23 U Marijuana (THC) Screen Negative ng/mL (Cutoff = 50) 11/24/17 18:23 Ur Drug Screen Interp See Below 11/24/17 18:23 Ethyl Alcohol < 10 mg/dL (Less than 10) 11/24/17 18:15 Consult Discharge Plan - Plan Referrals: NONE,PCP [Primary Care Provider] - Miguelito HagerConversio [Family Provider] -
[2017-11-25] MEDS ORDERED: Nicotine 21 MG PATCH.TD24 TD SCH (15:45)
[2017-11-25 15:59] VITALS: BP 150/90
--- NOTE | 2017-11-25 20:54 | Emergency Department Note ---
Disposition Clinical Impression: Confusion Fever Qualifiers: Fever type: unspecified Qualified Code(s): R50.9 - Fever, unspecified Disposition: Admitted As Inpatient Condition: Undetermined General Adult HPI - General Chief complaint: ED Fall Stated complaint: Fall Time Seen by Provider: 11/24/17 17:56 Source: EMS Limitations: altered mental status Nursing Notes Reviewed: Yes Vital Signs Reviewed: Yes - History of Present Illness Pain Scale: 0 - Related Data Previous Rx's Medication Instructions Recorded hydrOXYzine pamoate [HydrOXYzine 25 mg PO TID PRN #120 capsule 11/16/17 Pamoate] Buspirone HCl [Buspar] 15 mg PO BID #60 tablet 11/23/17 Ibuprofen [Motrin] 800 mg PO Q6-8H PRN #30 tablet 11/23/17 Allergies Allergy/AdvReac Type Severity Reaction Status Date / Time chlorpromazine Allergy Difficulty Verified 11/23/17 09:20 [From Thorazine] Breathing haloperidol [From Haldol] Allergy Difficulty Verified 11/23/17 09:20 Breathing hydroxyzine [From Vistaril] Allergy Rash Verified 11/23/17 09:24 risperidone [From Risperdal] AdvReac Difficulty Verified 11/23/17 09:20 Breathing ziprasidone [From Geodon] AdvReac Difficulty Verified 11/23/17 09:20 Breathing Past Medical History - Past Medical History Medical history: Reports: other Surgical history: Reports: non-contributory Psychiatric history: Reports: anxiety, depression, previous psychiatric hospitalization, other - Social History Smoking Status: Current every day smoker Smokeless Tobacco Status: No Alcohol use: Reports: none Drug use: Reports: prescription drug abuse Physical Exam - General Limitations: altered mental status General appearance: alert, lethargic Course Vital Signs Temperature 101 F H 11/24/17 17:54 Pulse Rate 131 11/24/17 17:54 Respiratory Rate 18 11/24/17 17:54 Blood Pressure 172/117 11/24/17 17:54 O2 Sat by Pulse Oximetry 97 11/24/17 17:54 Temperature 98.9 F 11/25/17 15:58 Pulse Rate 100 11/25/17 15:58 Respiratory Rate 22 11/25/17 15:58 Blood Pressure 150/90 11/25/17 15:58 O2 Sat by Pulse Oximetry 98 11/25/17 15:58 Oxygen Delivery Oxygen Delivery Room Air Medical Decision Making - Lab Data Result diagrams: 11/25/17 06:41 11/25/17 06:41 Lab Results 11/24/17 11/24/17 11/24/17 Range/Units 18:13 18:14 18:15 WBC 9.4 (4.3-11.1) K/mcL RBC 4.62 (4.19-5.50) M/mcL Hgb 13.0 (12.9-16.9) g/dL Hct 38.8 (37.5-50.1) % MCV 84.0 (83.0-100.0) fL MCH 28.1 (28.0-33.3) pg MCHC 33.5 (31.6-35.5) g/dL RDW 14.6 H (11.5-14.5) % Plt Count 227 (140-400) K/mcL MPV 9.7 (9.4-12.4) fL Immature Gran % 0.2 (0-4) % Seg Neutrophils % 79.9 % Lymphocytes % 12.1 % Monocytes % 6.5 % Eosinophils % 0.9 % Basophils % 0.4 % Neutrophils # 7.5 (1.6-8.9) K/mcL Lymphocytes # 1.1 (0.6-4.6) K/mcL Monocytes # 0.6 (0.0-1.3) K/mcL Eosinophils # 0.1 (0.0-0.6) K/mcL Basophils # 0.0 (0.0-0.2) K/mcL PT (9.4-12.1) Seconds INR APTT (26.0-36.0) Seconds Sodium (136-145) mEq/L Potassium (3.5-5.1) mEq/L Chloride (98-107) mEq/L Carbon Dioxide (23-29) mEq/L BUN (6-20) mg/dL Creatinine (0.70-1.30) mg/dL Est GFR ( Amer) (> 60) Est GFR (Non-Af Amer) (> 60) BUN/Creatinine Ratio (6-26) Glucose (70-105) mg/dL POC Glucose 274 H 238 H (70-99) mg/dL Calculated Osmolality (280-300) Calcium (8.6-10.3) mg/dL Total Bilirubin (0.3-1.0) mg/dL Direct Bilirubin (0.0-0.2) mg/dL Indirect Bilirubin (0.0-1.2) mg/dL AST (13-39) Units/L ALT (7-52) Units/L Alkaline Phosphatase (34-104) Units/L Troponin I (< 0.04) ng/mL Serum Total Protein (6.4-8.9) g/dL Albumin (3.5-5.7) g/dL Globulin (2.4-3.5) g/dL Albumin/Globulin Ratio (1.1-2.2) Urine Color (Yellow) Urine Clarity (Clear) Urine pH (5.0-8.0) pH Units Ur Specific [place] (1.010-1.025) Urine Protein (Neg-Trace) mg/dL Urine Glucose (UA) (Normal) mg/dL Urine Ketones (Negative) mg/dL Urine Blood (Negative) Urine Nitrite (Negative) Urine Bilirubin (Negative) Urine Urobilinogen (Normal) mg/dL Ur Leukocyte Esterase (Negative) Urine Microscopic RBC (0-3) per hpf Urine Microscopic WBC (0-3) per hpf Ur Squamous Epith Cells (None-Few) per lpf Urine Bacteria (None-Few) per hpf Hyaline Casts (None-Few) per lpf Urine Sperm Ur Culture Indicated? (NO) Urine Opiates Screen (Rqrxgu=812) ng/mL Ur Barbiturates Screen (Rpkpwe=390) ng/mL Ur Phencyclidine Scrn (Cutoff=25) ng/mL Ur Amphetamines Screen (Ebkfuz=9708) ng/mL U Benzodiazepines Scrn (Bcdcqx=194) ng/mL Urine Cocaine Screen (Cutoff= 300) ng/mL U Marijuana (THC) Screen (Cutoff = 50) ng/mL Ur Drug Screen Interp Ethyl Alcohol (Less than 10) mg/dL 11/24/17 11/24/17 11/24/17 Range/Units 18:15 18:15 18:23 WBC (4.3-11.1) K/mcL RBC (4.19-5.50) M/mcL Hgb (12.9-16.9) g/dL Hct (37.5-50.1) % MCV (83.0-100.0) fL MCH (28.0-33.3) pg MCHC (31.6-35.5) g/dL RDW (11.5-14.5) % Plt Count (140-400) K/mcL MPV (9.4-12.4) fL Immature Gran % (0-4) % Seg Neutrophils % % Lymphocytes % % Monocytes % % Eosinophils % % Basophils % % Neutrophils # (1.6-8.9) K/mcL Lymphocytes # (0.6-4.6) K/mcL Monocytes # (0.0-1.3) K/mcL Eosinophils # (0.0-0.6) K/mcL Basophils # (0.0-0.2) K/mcL PT 12.6 H (9.4-12.1) Seconds INR 1.1 APTT 25.4 L (26.0-36.0) Seconds Sodium 142 (136-145) mEq/L Potassium 3.8 (3.5-5.1) mEq/L Chloride 110 H (98-107) mEq/L Carbon Dioxide 24 (23-29) mEq/L BUN 18 (6-20) mg/dL Creatinine 1.37 H (0.70-1.30) mg/dL Est GFR ( Amer) > 60 (> 60) Est GFR (Non-Af Amer) 57 L (> 60) BUN/Creatinine Ratio 13 (6-26) Glucose 256 H (70-105) mg/dL POC Glucose (70-99) mg/dL Calculated Osmolality 305 H (280-300) Calcium 9.5 (8.6-10.3) mg/dL Total Bilirubin 0.5 (0.3-1.0) mg/dL Direct Bilirubin 0.2 (0.0-0.2) mg/dL Indirect Bilirubin 0.3 (0.0-1.2) mg/dL AST 19 (13-39) Units/L ALT 25 (7-52) Units/L Alkaline Phosphatase 67 (34-104) Units/L Troponin I < 0.03 (< 0.04) ng/mL Serum Total Protein 7.0 (6.4-8.9) g/dL Albumin 4.2 (3.5-5.7) g/dL Globulin 2.8 (2.4-3.5) g/dL Albumin/Globulin Ratio 1.5 (1.1-2.2) Urine Color Yellow (Yellow) Urine Clarity Cloudy A (Clear) Urine pH 5.5 (5.0-8.0) pH Units Ur Specific [place] 1.029 H (1.010-1.025) Urine Protein 30 H (Neg-Trace) mg/dL Urine Glucose (UA) 250 H (Normal) mg/dL Urine Ketones Negative (Negative) mg/dL Urine Blood Small H (Negative) Urine Nitrite Negative (Negative) Urine Bilirubin Negative (Negative) Urine Urobilinogen Normal (Normal) mg/dL Ur Leukocyte Esterase Negative (Negative) Urine Microscopic RBC 5-15 H (0-3) per hpf Urine Microscopic WBC 0-3 (0-3) per hpf Ur Squamous Epith Cells Many H (None-Few) per lpf Urine Bacteria None Seen (None-Few) per hpf Hyaline Casts Few (None-Few) per lpf Urine Sperm Present Ur Culture Indicated? NO (NO) Urine Opiates Screen (Uanocp=720) ng/mL Ur Barbiturates Screen (Whdwoj=046) ng/mL Ur Phencyclidine Scrn (Cutoff=25) ng/mL Ur Amphetamines Screen (Jyhjjp=1302) ng/mL U Benzodiazepines Scrn (Vquxsi=672) ng/mL Urine Cocaine Screen (Cutoff= 300) ng/mL U Marijuana (THC) Screen (Cutoff = 50) ng/mL Ur Drug Screen Interp Ethyl Alcohol < 10 (Less than 10) mg/dL 11/24/17 Range/Units 18:23 WBC (4.3-11.1) K/mcL RBC (4.19-5.50) M/mcL Hgb (12.9-16.9) g/dL Hct (37.5-50.1) % MCV (83.0-100.0) fL MCH (28.0-33.3) pg MCHC (31.6-35.5) g/dL RDW (11.5-14.5) % Plt Count (140-400) K/mcL MPV (9.4-12.4) fL Immature Gran % (0-4) % Seg Neutrophils % % Lymphocytes % % Monocytes % % Eosinophils % % Basophils % % Neutrophils # (1.6-8.9) K/mcL Lymphocytes # (0.6-4.6) K/mcL Monocytes # (0.0-1.3) K/mcL Eosinophils # (0.0-0.6) K/mcL Basophils # (0.0-0.2) K/mcL PT (9.4-12.1) Seconds INR APTT (26.0-36.0) Seconds Sodium (136-145) mEq/L Potassium (3.5-5.1) mEq/L Chloride (98-107) mEq/L Carbon Dioxide (23-29) mEq/L BUN (6-20) mg/dL Creatinine (0.70-1.30) mg/dL Est GFR ( Amer) (> 60) Est GFR (Non-Af Amer) (> 60) BUN/Creatinine Ratio (6-26) Glucose (70-105) mg/dL POC Glucose (70-99) mg/dL Calculated Osmolality (280-300) Calcium (8.6-10.3) mg/dL Total Bilirubin (0.3-1.0) mg/dL Direct Bilirubin (0.0-0.2) mg/dL Indirect Bilirubin (0.0-1.2) mg/dL AST (13-39) Units/L ALT (7-52) Units/L Alkaline Phosphatase (34-104) Units/L Troponin I (< 0.04) ng/mL Serum Total Protein (6.4-8.9) g/dL Albumin (3.5-5.7) g/dL Globulin (2.4-3.5) g/dL Albumin/Globulin Ratio (1.1-2.2) Urine Color (Yellow) Urine Clarity (Clear) Urine pH (5.0-8.0) pH Units Ur Specific [place] (1.010-1.025) Urine Protein (Neg-Trace) mg/dL Urine Glucose (UA) (Normal) mg/dL Urine Ketones (Negative) mg/dL Urine Blood (Negative) Urine Nitrite (Negative) Urine Bilirubin (Negative) Urine Urobilinogen (Normal) mg/dL Ur Leukocyte Esterase (Negative) Urine Microscopic RBC (0-3) per hpf Urine Microscopic WBC (0-3) per hpf Ur Squamous Epith Cells (None-Few) per lpf Urine Bacteria (None-Few) per hpf Hyaline Casts (None-Few) per lpf Urine Sperm Ur Culture Indicated? (NO) Urine Opiates Screen Negative (Sqlgcz=505) ng/mL Ur Barbiturates Screen Negative (Edcwia=019) ng/mL Ur Phencyclidine Scrn Negative (Cutoff=25) ng/mL Ur Amphetamines Screen Positive H (Hoegyy=8867) ng/mL U Benzodiazepines Scrn Negative (Mrgugo=193) ng/mL Urine Cocaine Screen Negative (Cutoff= 300) ng/mL U Marijuana (THC) Screen Negative (Cutoff = 50) ng/mL Ur Drug Screen Interp See Below Ethyl Alcohol (Less than 10) mg/dL Critical Care Time Critical Care Time: Yes Total Critical Care Time: 35 Attestation: Critical care performed: Time is exclusive of separately billable procedures. Time includes: direct patient care, patient reassessment, coordination of patient care, interpretation of data (laboratory data, radiology data, and respiratory data), review of patient's medical records, medical consultation and documentation of patient care. Procedures included in critical care time: Procedures excluded from critical care time: Attestation Statement - Attestation Attestation: I, Lebron Chavez MD, personally evaluated this patient and discussed their management with the resident physician. I reviewed the resident's note and agree with the documented findings, medical decision making, and plan of care. 42-year-old male presented to the emergency department by embolus for altered mental status. Patient was apparently found down on the ground outside a convenience store. They reported he had been inside the convenience store and seemed to be very staggering and off balance. He then collapsed outside. EMS reports on their arrival the patient was awake and would answer some questions initially and then became nonverbal. On arrival here in the emergency department the patient is awake and alert but will not speak or answer questions. He follows some simple commands. On examination patient is a well-developed well-nourished male in no acute distress. He is alert. No cyanosis or diaphoresis. Neck is supple with no meningismus. Breath sounds are clear and equal bilaterally. Heart regular. Abdomen soft and nontender with normal bowel sounds. No gross focal neurological deficits. Chest x-ray negative. Head CT negative. Labs reviewed. At shift change [facility], Dr. Bah and Dr. Durbin.
--- NOTE | 2017-11-26 18:09 | Electrocardiograph Report ---
[address] [place], [place] [address] Test Date: 2017-11-24 Pat Name: [place] Department: 104 Room: 2A Gender: M Nursing Program Chair: M : [id number] Requested By: Gennaro Zazueta Order Number: [id number] Reading MD: Davis Toro Measurements Intervals [place] Rate: 104 P: [place]: 0 QRS: 66 QRSD: 102 T: 53 QT: 293 QTc: 353 Interpretive Statements ATRIAL FIBRILLATION WITH RAPID VENTRICULAR RESPONSE Electronically Signed On 11-26-2017 18:08:07 EDT by Davis Toro
== END 2017-11-25 17:35 | disposition left against medical advice (07) ==
LOC: EMEROO 17:51 → 3BNU 17:51 → SUATTDRO 22:22 → 2ANU 22:35
PROVIDERS: ADMIT Family Medicine; ATTEND Internal Medicine